=== PATIENT | male | born 1960 | race Caucasian/White ===

== ENCOUNTER 2024-05-11 07:08 | Outpatient (CLI) | payer BC, SELFPAY ==
--- OUTSIDE RECORDS SUMMARY | 2024-05-11 07:11 | XMS_ITS | Clinical Summary ---
Author Organization [place] Address [address] [place] [address] Care Team Providers Care Coin Wrapping Machine Operator Name Role Phone Tere Koenig MD Primary Care Provider [phone] Allergies No known active allergies Medications Medication Sig Dispensed Refills Start Date End Date Status aspirin (ASA) 81 MG chewable tablet Take 81 mg by mouth daily Active atorvastatin (LIPITOR) 40 MG tablet Take 40 mg by mouth At Bedtime Active empagliflozin (JARDIANCE) 10 MG TABS tablet Take 10 mg by mouth daily Active lisinopril (ZESTRIL) 2.5 MG tablet Take 2.5 mg by mouth daily Active metFORMIN (GLUCOPHAGE) 500 MG tablet Take 1,000 mg by mouth 2 times daily (with meals) Active sildenafil (VIAGRA) 100 MG tablet Take 100 mg by mouth daily as needed Active Active Problems Problem Noted Date Diagnosed Date Osteomyelitis of third toe of left foot 01/13/20 Social History Tobacco Use Types Packs/Day Years Used Date Smoking Tobacco: Never Smokeless Tobacco: Never Tobacco Cessation:Counseling Given: Yes Adolescent Education Answer Date Record ed Getting School Help Needed Not on file 04/19 Sex and Gender Information Value Date Recorded Sex Assigned at Not on file Gender Identity Not on file Sexual Orientation Not on file Last Filed Vital Signs Vital Sign Reading Time Taken Comments Blood Pressure 110/72 02/05/2022 1:01 PM CDT Pulse 67 01/15/2022 7:42 AM CDT Temperature 36.9 ??C (98.4 ??F) 01/15/2022 7:42 AM CD T Respiratory Rate 16 01/15/2022 7:42 AM CDT Oxygen Saturation 98% 01/15/2022 7:42 AM CDT Inhaled Oxygen Concentration - - Weight 79.4 kg (175 lb) 01/12/2022 10:13 AM CDT Height 182.9 cm (6') 01/12/2022 10:13 AM CDT Body Mass Index 23.73 01/12/2022 10:13 AM CDT Plan of Treatment Health Maintenance Due Date Last Done Comments ADVANCE CARE PLANNING 1960 ANNUAL REVIEW OF HM ORDERS 1961 CT COLONOGRAPHY 1961 FIT 1960 FLEX SIG 1960 LIPID 1961 sDNA (Cologuard) 1961 COLONOSCOPY 1971 COLORECTAL CANCER SCREENING 1971 HIV SCREENING 1976 HEPATITIS C SCREENING 1979 YEARLY PREVENTIVE VISIT 08/13/2022 08/13/2021 DTAP/TDAP/TD IMMUNIZATION (2 - Td or Tdap) 08/27/2022 08/27/2012 PHQ-2 (once per calendar year) 2023 COVID-19 Vaccine ( season) 2024 08/13/2021, 01/15/2021, 12/23/2020 INFLUENZA VACCINE (#1) 2024 04/11/2021 GLUCOSE 01/15/2025 01/15/2022, 12/26, 01/15/2022, Additional history exists RSV VACCINE (1 - 1-dose 75+ series) 2036 ZOSTER IMMUNIZATION Completed 04/11/2021, HPV IMMUNIZATION Aged Out No longer e ligible based on patient's age to complete this topic MENINGITIS IMMUNIZATION Aged Out No l onger eligible based on patient's age to complete this topic Pneumococcal Vaccine: Pediatrics (0 to 5 Years) and At-Risk Patients (6 to 64 Years) Aged Out No longer eligible based on patient's age to complete this topic RSV MONOCLONAL ANTIBODY Aged Out No l onger eligible based on patient's age to complete this topic Procedures Procedure Name Priority Date/Time Associated Diagnosis Comments GLUCOSE BY METER Routine 01/15/2022 4:12 AM CDT from Last 3 Months or Most Recently Relevant to Health Maintenance Results * (ABNORMAL) Glucose by meter (01/15/2022 4:12 AM CDT) GLUCOSE BY METER POCT 133(H) 70 - 99 mg/dL 01/15/2022 4:20 AM CDT [facility] Blood, Capillary BLOOD SPECIMEN / Unknown 01/15/2022 4:12 AM CDT 01/15/2022 4:20 AM CDT Luis Antonio Art MD LAB - [facility] PO CT [facility] POC [facility] [address] Lab (1st floor, no room number) [place] [address], [facility] [phone] from Last 3 Months or Most Recently Relevant to Health Maintenance Advance Directives For more information, please contact: [phone] * Full Code (Latest Code Status on File) Date Activated Date Inactivated Comments 01/12/2022 2:23 PM 01/15/2022 4:50 PM All basic an d advanced life-sustaining interventions are performed as appropriate Question Answer Comments Code status determined by: Discussion with jermaine nt/ legal decision maker Care Teams Coin Wrapping Machine Operator Relationship Specialty [place] [address] [place] [address] PCP - General Family Medicine 01/12/22
--- OUTSIDE RECORDS SUMMARY | 2024-05-11 07:11 | XMS_ITS | Clinical Summary ---
Author Organization [employer] Address [place], [place] [address] Care Team Providers Care Adjunct Psychology Faculty Member Name Role Phone Tere Koenig MD Primary Care Provider Allergies No known active allergies Medications Medication Sig Dispensed Refills Start Date End Date Status blood-glucose meterIndications:T ype 2 diabetes mellitus without complication, without long-term current use of insulin (HC) Dispense meter, test strips, lancets covered by pt ins. E11.65 NIDDM type II, uncontrolled - Test 2 times/day. Reason: New diabetes 1 Device 10/24/2020 Active Accu-Chek Softclix LancetsIndications :Type 2 diabetes mellitus without complication, without long-term current use of insulin (HC) USE TO TEST TWICE DAILY 200 Each 3 08/11/2022 Active blood sugar diagnostic (Accu-Chek Guide test strips) stripIndications:T ype 2 diabetes mellitus without complication, without long-term current use of insulin (HC) USE TO TEST 1 TIME/DAY 100 Each 3 08/07/2023 Active atorvastatin (Lipitor) 40 mg tabletIndications: Type 2 diabetes mellitus without complication, without long-term current use of insulin (HC),Hypercholeste rolemia Take 1 Tablet (40 mg) by mouth at bedtime. 100 Tablet 3 08/13/2023 Active empagliflozin (Jardiance) 10 mg tabletIndications: Type 2 diabetes mellitus without complication, without long-term current use of insulin (HC) Take 1 Tablet (10 mg) by mouth once daily. 100 Tablet 3 08/13/2023 Active lisinopriL (PRINIVIL; ZESTRIL) 5 mg tabletIndications: Microalbuminuria Take 1 Tablet (5 mg) by mouth once daily. 100 Tablet 3 02/23/2024 Active metFORMIN (GLUCOPHAGE) 1,000 mg tabletIndications: Type 2 diabetes mellitus without complication, without long-term current use of insulin (HC) Take 1 Tablet (1,000 mg) by mouth two times daily with meals. 200 Tablet 3 02/23/2024 Active Active Problems Problem Noted Date Diagnosed Date Microalbuminuria 02/04/2022 Hypercholesterolemia 02/04/2022 Type 2 diabetes mellitus wit hout complication, without long-term current use of insulin 10/24/2020 Resolved Problems Problem Noted Date Diagnosed Date Resolved Date Gangrene of toe of left foot 08/14/2022 08/14/2022 Encounters Date Type Department Care Team Description 02/23/2024 7:40 AM CDT Office Visit [facility] [place] [place] [address] [facility] [place], [place] [id number] Tere Koenig MD Diabetes 02/23/2024 Travel from Last 3 Months Immunizations Name Administration Dates Next Due COVID-19 VACCINE SPIKEVAX (M ODERNA 50MCG/0.5ML) 12YO+ PFS 08/13/2023 COVID-19 vaccine (Moderna 50 mcg/0.5mL) 12YO+ BIVALENT PF, MDV 08/14/2022 COVID-19 vaccine (Moderna Reggie mis 50mcg/0.25mL) PF, MDV 08/13/2021 COVID-19 vaccine (ThoughtLeadr-Bio NTech 30mcg/0.3mL) PF, MDV 01/15/2021,12/23/2020 Hepatitis B (Adult) 02/06/2021 Influenza, IIV4 08/13/2023,08/14/2022,04/11/2021 RSV, Recombinant ADJ Reconst ituted (Arexvy 120MCG/0.5mL) 08/13/2023 Tdap 08/14/2022,08/27/2012 Zoster (Shingrix-RZV, recombinant) 04/11/2021, Family History Medical History Relation Name Comments No Known Problems Daughter Jasmin Heart Disease Father CHF Stroke Maternal Grandmother Heart Disease Mother Unknown Paternal Grandmother No Known Problems Sister 1 Rossy No Known Problems Sister 2 Nazanin No Known Problems Son Keyur Relation Name Status Comments Daughter Jasmin Alive Father Maternal Grandfather Maternal Grandmother Mother Paternal Grandfather Paternal Grandmother Sister 1 Rossy Alive Sister 2 Nazanin Alive Son Keyur Alive Social History Tobacco Use Types Packs/Day Years Used Date Smoking Tobacco: Never Smokeless Tobacco: Never Tobacco Cessation:Counseling Given: Yes Alcohol Use Standard Drinks/Week Comments Yes 0 (1 standard drink = 0.6 oz pure alcohol) 1-2 times a week; 2 drinks at a time PHQ-2 Answer Date Recorded PHQ-2 TOTAL SCORE 0 02/23/2024 Social Connections Answer Date Recorded Frequency of Communication with Friends and Fami ly 0 02/23/2024 Financial Resource Strain Answer Date R ecorded Difficulty of Paying Living Expenses 3 02/23/2024 Difficulty of Paying Living Expenses Not on file 02/23/2024 Food Insecurity Answer Date Recorded Worried About Running Out of Food in the Last Ye ar 1 02/23/2024 Transportation Needs Answer Date Record ed Lack of Transportation (Medical) 1 02/23/2024 Housing Stability Answer Date Recorded Unable to Pay for Housing in the Last Year 1 02/23/2024 Sex and Gender Information Value Date Recorded Sex Assigned at Male 08/12/2021 10:41 AM RESEARCH AND DEVELOPMENT SPECIALIST Gender Identity Male 08/12/2021 10:41 AM RESEARCH AND DEVELOPMENT SPECIALIST Sexual Orientation Straight 08/12/2021 10 :41 AM RESEARCH AND DEVELOPMENT SPECIALIST Obstetrics History Last Filed Vital Signs Vital Sign Reading Time Taken Comments Blood Pressure 122/78 02/23/2024 7:52 AM CDT Pulse 72 02/23/2024 7:52 AM CDT Temperature 36.2 ??C (97.2 ??F) 01/12/2022 9:04 AM CD T Respiratory Rate 16 01/12/2022 9:04 AM CDT Oxygen Saturation 99% 02/23/2024 7:52 AM CDT Inhaled Oxygen Concentration - - Weight 84.9 kg (187 lb 3.2 oz) 02/23/2024 7:52 A M CDT Height 183.5 cm (6' 0.24) 02/23/2024 7:52 AM CD T Body Mass Index 25.22 02/23/2024 7:52 AM CDT Plan of Treatment Upcoming Encounters Date Type Department Care Team (Late st Contact Info) Description 05/16/2024 1:40 PM CDT Office Visit [facility] [address] [place] [address] [place] [address] Susan Chris, DPM [address] [place] [address] [place] [address] 08/25/2024 7:40 AM RESEARCH AND DEVELOPMENT SPECIALIST Office Visit [facility] [place], [place] [address] [address] [place], [place] [phone] [place] [address] [address] [facility] [place] [address] Health Maintenance Due Date Last Done Comments Pneumococcal series for age 6-64 (1 of 2 - PCV) 1967 COVID-19 vaccine series (2023- season) 2024 08/13/2023, 08/14/2022, 08/13/2021, Additional history exists Influenza for age 50-64 03/27/2024 08/13/19 24, 08/14/2022, 04/11/2021 BMI (ht and wt on same day) for age 18+ 02/22/2025 02/23/2024, 08/13/2023, 02/10/2023, Additional history exists Depression screening for age 12+ 02/22/2025 02/23/2024, 02/10/2023, 02/10/2022, Additional history exists Fecal testing sDNA-FIT ([place] guard) for age 45-75 09/14/2026 09/14/2023 Lipids for age 45-75 08/13/2028 08/13/2023, 08/14/2022, 02/06/2021, Additional history exists Tetanus booster 08/14/2032 08/14/2022, 08/27/2012 HIV for age 15-65 Completed 10/22/2020 Hepatitis C screening for ag e 18-79 Completed 02/06/2021 Zoster (shingles) series for age 50+ Completed 04/11/2021, 02/06/2021 Tdap Completed 08/14/2022, 08/27/2012 Procedures Procedure Name Priority Date/Time Associated Diagnosis Comments PSA TOTAL (DIAGNOSTIC) Routine 02/23/2024 8:10 AM CDT Elevated PSA HEMOGLOBIN A1C MONITORING (POCT) Routine 02/23/2024 7:41 AM CDT Type 2 diabetes mellitus without complication, without long-term current use of insulin (HC) SDNA-FIT EXTERNAL (COLOGUARD) Routine 09/14/2023 1:50 PM RESEARCH AND DEVELOPMENT SPECIALIST Screen for colon cancer LIPID PANEL W REFLEX MEASURED LDL Routine 08/13/2023 7:44 AM RESEARCH AND DEVELOPMENT SPECIALIST Type 2 diabetes mellitus without complication, without long-term current use of insulin (HC) Hypercholesterolemi a ANTI HCV Add On 02/06/2021 8:09 AM CDT Need for hepatitis C screening test ANTI HIV 1/2 Routine 10/22/2020 12:32 PM CDT Paresthesia from Last 3 Months or Most Recently Relevant to Health Maintenance Results * (ABNORMAL) PSA TOTAL (DIAGNOSTIC) (02/23/2024 8:10 AM CDT) PSA TOTAL (DIAGNOSTIC) 6.12(H) <4.00 ng/mL 02/23/2024 5:08 PM CDT [facility] Blood BLOOD SPECIMEN / Unknown Capillary / Unknown 02/23/2024 8:10 AM CDT 02/23/2024 8:10 AM CDT Narrative [facility] - 02/23/2024 5:08 PM CDT The test method changed on 01/20/2023. If this test has been used for serial monitoring, rebaselining is recommended. Rebaselining consists of 2 measurements, collected 3-6 weeks apart. The Nora Elecsys total PSA assay is an electrochemiluminescence immunoassay ECLIA performed on the Nora Sterling e immunoassay analyzers. Values obtained with different assay methods may be different and cannot be used interchangeably. Tere Koenig MD CHEMISTRY Performing Organization Address [facility] Co de Phone Number [facility] [address] [place] [address], * (ABNORMAL) HEMOGLOBIN A1C MONITORING (POCT) (02/23/2024 7:41 AM CDT) [facility] HEMOGLOBIN A1C MONITORING (POCT) 6.7(H) <=6.4 % 02/23/2024 7:50 AM CDT [facility] Blood BLOOD SPECIMEN / Unknown Venipuncture / Unknown 02/23/2024 7:41 AM CDT 02/23/2024 7:41 AM CDT Narrative [facility] - 02/23/2024 7:50 AM CDT ? (<=6.9%) ? Indicates good control ? (7.0% to 7.9%) ? Indicates fair control ? (>=8.0%) ? Indicates poor control ?? NOTE: ??These thresholds are guidelines and ?individual targets may vary. Falsely low levels may be seen with: Recent Transfusion, Recent Significant Blood Loss, Hemolytic Diseases, or Falsely elevated levels may be seen with: Untreated Anemias, Splenectomy ? Tere Koenig MD CHEMISTRY Performing Organization Address [facility] Co de Phone Number [facility] [address] [place] [address], * SDNA-FIT EXTERNAL (COLOGUARD) (09/14/2023 1:50 PM RESEARCH AND DEVELOPMENT SPECIALIST) [facility] NONINV COLON CA DNA+OCC BLD SCRN STL-IMP Negative Negative 09/21/2023 4:17 PM RESEARCH AND DEVELOPMENT SPECIALIST [facility] (CLIA #:[id number]) Comment: NEGATIVE TEST RESULT. A negative Cologuard result indicates a low likelihood that a colorectal cancer (CRC) or advanced adenoma (adenomatous polyps with more advanced pre-malignant features) ??is present. The chance that a person with a negative Cologuard test has a colorectal cancer is less than 1 in 1500 (negative predictive value >99.9%) or has an ??advanced adenoma is less than ??5.3% (negative predictive value 94.7%). These data are based on a prospective cross-sectional study of 10,000 individuals at average risk for colorectal cancer who were screened with both Cologuard and colonoscopy. (Amanda Renee al, N Engl J Med 2014;370(14):1286- 1297) The normal value (reference range) for this assay is negative. COLOGUARD RE-SCREENING RECOMMENDATION: Periodic colorectal cancer screening is an important part of preventive healthcare for asymptomatic individuals at average risk for colorectal cancer. ??Following a negative Cologuard result, the [place] Cancer Society and U.S. Multi-Society Task Force screening guidelines recommend a Cologuard re-screening interval of 3 years. References: [place] [employer] Society Guideline for Colorectal Cancer Screening: https://www.cancer.org/cancer/smugt-aprrlt-rrhhoy/dkhkrfvyt-rifaeilqc-gchwbru/ac s-rec ommendations.html.; Jaziel DK, Audrey CR, Kevin OrtaK, Colorectal Cancer Screening: Recommendations for Physicians and Patients from the U.S. Multi-Society Task Force on Colorectal Cancer Screening , Am J Gastroenterology 2017; 112:3911-9855. TEST DESCRIPTION: Composite algorithmic analysis of stool DNA-biomarkers with hemoglobin immunoassay. ?? Quantitative values of individual biomarkers are not reportable and are not associated with individual biomarker result reference ranges. Cologuard is intended for colorectal cancer screening of adults of either sex, 45 years or older, who are at average-risk for colorectal cancer (CRC). Cologuard has been approved for use by the U.S. FDA. The performance of Cologuard was established in a cross sectional study of average-risk adults aged 50-84. Cologuard performance in patients ages 45 to 49 years was estimated by sub-group analysis of near-age groups. Colonoscopies performed for a positive result may find as the most clinically significant lesion: colorectal cancer [4.0%], advanced adenoma (including sessile serrated polyps greater than or equal to 1cm diameter) [20%] or non- advanced adenoma [31%]; or no colorectal neoplasia [45%]. These estimates are derived from a prospective cross-sectional screening study of 10,000 individuals at average risk for colorectal cancer who were screened with both Cologuard and colonoscopy. (Amanda Renee al, N Engl J Med 2014;370(14):0570-5224.) Cologuard may produce a false negative or false positive result (no colorectal cancer or precancerous polyp present at colonoscopy follow up). A negative Cologuard test result does not guarantee the absence of CRC or advanced adenoma (pre-cancer). The current Cologuard screening interval is every 3 years. ([place] Cancer Society and U.S. Multi-Society Task Force). Cologuard performance data in a 10,000 patient pivotal study using colonoscopy as the reference method can be accessed at the following location: www.Tribzi/results. Additional description of the Cologuard test process, warnings and precautions can be found at www.SavingGlobalogLongfan Mediard.com. Stool specimen (specimen) (Rectum) 09/14/2023 1:50 PM RESEARCH AND DEVELOPMENT SPECIALIST 09/15/2023 12:57 PM RESEARCH AND DEVELOPMENT SPECIALIST Tere Koenig MD URINE [facility] (CLIA #:[id number]) [place] [address], * LIPID PANEL W REFLEX MEASURED LDL (08/13/2023 7:44 AM RESEARCH AND DEVELOPMENT SPECIALIST) CHOLESTEROL,TOTAL 136 100 - 199 mg/dL 08/13/2023 5:21 PM RESEARCH AND DEVELOPMENT SPECIALIST [facility] Comment: Cholesterol, Total Reference Ranges Desirable <200 mg/dL Borderline 200-239 mg/dL High >=240 mg/dL TRIGLYCERIDES 56 <150 mg/dL 08/13/2023 5:21 PM RESEARCH AND DEVELOPMENT SPECIALIST [facility] HDL CHOLESTEROL 65 >40 mg/dL 5:21 PM RESEARCH AND DEVELOPMENT SPECIALIST [facility] NON-HDL CHOLESTEROL 71 <145 mg/dl 08/13/2023 5:[address] [facility] CHOL/HDL RATIO 2.09 <4.50 08/13/2023 5:[address] [facility] LDL CHOLESTEROL 60 <=130 mg/dL 08/13/2023 5:[address] [facility] VLDL CHOLESTEROL 11 <=30 mg/dL 08/13/2023 5:[address] [facility] PROVIDER ORDERED STATUS FASTING 08/13/2023 5:21 PM RESEARCH AND DEVELOPMENT SPECIALIST [facility] TR[facility] Blood BLOOD SPECIMEN / Unknown Venipuncture / Unknown 08/13/2023 7:44 AM RESEARCH AND DEVELOPMENT SPECIALIST 08/13/2023 7:44 AM RESEARCH AND DEVELOPMENT SPECIALIST Tere Koenig MD CHEMISTRY [facility] [address] [place] [address], * ANTI HCV (02/06/2021 8:09 AM CDT) HEPATITIS C ANTIBODY Non-React abilio Non-React abilio 02/08/2021 5:32 PM CDT [facility] Comment:Antibodies to HCV no t detected; does not exclude the possibility of exposure to HCV. Blood BLOOD SPECIMEN / Unknown Venipuncture / Unknown 02/06/2021 8:09 AM CDT 02/06/2021 8:10 AM CDT Tere Koenig MD SEND OUTS [facility] [address] [place] [address], * ANTI HIV 1/2 (10/22/2020 12:32 PM CDT) HIV-1/HIV-2 ANTIBODY Non-Reacti ve Non-Reacti ve 10/22/2020 10:35 PM CDT [facility] Comment:HIV-1 p24 and HIV-1/ HIV-2 Ab not detected. Blood BLOOD SPECIMEN / Unknown Venipuncture / Unknown 10/22/2020 12:32 PM CDT 10/22/2020 12:32 PM CDT Tere Koenig MD SEND OUTS [facility] [address] [place] [address], from Last 3 Months or Most Recently Relevant to Health Maintenance Care Teams Adjunct Psychology Faculty Member Relationship Specialty [place] [address] [place] [address] PCP - General Family Practice 10/24/20
--- OUTSIDE RECORDS SUMMARY | 2024-05-11 07:11 | XMS_ITS | Referral Summary ---
Author Organization [facility] Address [address] [place] [address] Care Team Providers Care Grocery Packer Name Role Phone Tere Keonig MD Primary Care Provider Allergies No known [...] 01/12/2022 10:13 AM CDT Plan of Treatment Not on file Procedures Procedure Name Priority Date/Time Associated Diagnosis [...] CDT Luis Antonio Art MD LAB - [facility] [address] RH LABORATORY [facility] Acute [facility] Lab [address] Lab (1st floor, no room number) [place] [address], [facility] [phone] from Last 3 Months or Most Recently Relevant to Health Maintenance Advance Directives For more information, please contact: [phone] * Full Code (Latest Code Status on File) Date Activated Date Inactivated Comments 01/12/2022 2:23 PM 01/15/2022 4:50 PM All basic an d advanced life-sustaining interventions are performed as appropriate Question Answer Comments Code status determined by: Discussion with jermaine nt/ legal decision maker Care Teams Grocery Packer Relationship Specialty [place] [address] [place] [address] PCP - General Family Medicine 01/12/22
--- NOTE | 2024-05-11 07:15 | MR_ITS ---
[facility] [address] [facility] [address] Phone:?[phone] Fax:?[phone] Referring Physician Information: Luisito Hernandez M.D. [address] [facility] [address] Phone:?[phone] Fax:?[phone] Patient:Maxine Veloz D.O.B:?1960 Sex:?Male Phone:?[phone] [facility] MRN:?[id number] Exam Date:?05/11/2024 EXAM: MR PELVIS WITHOUT AND WITH CONTRAST CLINICAL INFORMATION: Elevated PSA. COMPARISON: None. TECHNICAL INFORMATION: Examination was performed on a 1.5T magnet. High- resolution T1 axial, T2 axial, T2 FSE sagittal and T2 FSE coronal images were obtained through the prostate gland and seminal vesicles. Diffusion images were obtained in the axial plane. 20 mL of Dotarem were injected with dynamic enhanced images of the prostate gland in the axial plane. T1 fat saturation sagittal and coronal images were obtained postinjection. Images were analyzed with 3-D postprocessing online under concurrent physician supervision using a separate [employer] workstation. INTERPRETATION: The prostate gland measures 5.8 x 5.0 x 5.8 cm (TV x AP x SI) for an estimated volume of 88 cc. Transitional and central zones: There is marked glandular and stromal hyperplasia with well encapsulated BPH nodules (PI-RADS 2). No focal CZ/TZ lesions concerning for clinically significant adenocarcinoma. Peripheral zones: There is patchy T2-hypointensity with variable hypervascularity, in keeping with prior prostatitis (PI-RADS 2). No focal PZ lesions concerning for clinically significant adenocarcinoma. Pelvis: No bakari transcapsular disease. Neurovascular bundles and seminal vesicles appear intact. No pelvic lymphadenopathy or evident bone marrow disease. CONCLUSION: Marked prostatomegaly with stigmata of BPH and prior prostatitis. No suspicious (PI-RADS 3, 4, or 5) lesions identified. No bakari transcapsular, wes, or skeletal disease in the pelvis. PI-RADS Assessment Categories: Score 1 = very low; clinically significant disease highly unlikely Score 2 = low; clinically significant disease is unlikely Score 3 = intermediate; clinically significant disease is equivocal Score 4 = high; clinically significant disease is likely Score 5 = very high; clinically significant disease is highly likely Electronically signed on 05/14/2024 1:03:00 PM by Jason Esc[place] M.D.
== END 2024-05-11 07:09 | disposition home or self-care (01) ==
LOC: MRI 07:09
PROVIDERS: PCP Family Medicine; Visit Provider Urology
DX: R97.20 Elevated prostate specific antigen [PSA] (principal)
CPT/HCPCS: 72197; A9575

== ENCOUNTER 2024-05-29 16:05 | Inpatient (IN) | payer BC, SELFPAY ==
[2024-05-29 16:10] VITALS: BP 133/83; PULSE 105; RESP 20; TEMP 37.1; O2SAT 98; BMI 25.1
--- OUTSIDE RECORDS SUMMARY | 2024-05-29 16:53 | XMS_ITS | Data Portability ---
Author Organization [facility], [facility] Address [address] [place] [address] Care Team Providers Care Clin Application Specialist Name Role Phone KAUSHIKJOHNY CORTES Primary Care Provider Assessment No assessment recorded. Plan of Treatment Reminders Order Date Submit Date Provider Last Modified By Organization Details Last Modified Time Details Appointments None recorded. Lab None recorded. Referral None recorded. Procedures None recorded. Surgeries None recorded. Imaging MRI, prostate, w/wo contrast - elevated PSA 2023 024 [email or web address] [facility], [address], [place], [address], 16:06:38 Medication Orders None recorded. Patient TargetsNo targets recorded. Patient Instructions Encounter Date Encounter Id Patient Instructions Last Modified By Organization Details Last Modified Time 03/23/2024 [id number] We discussed the significance of an elevated serum prostate specific antigen and its utility in screening for prostate cancer. We discussed that while prostate specific antigen levels may be elevated in some men due to benign causes such as trauma, recent sexual intercourse, urinary tract infections, or recent instrumentation, it may also be indicative of underlying prostate cancer. We discussed that a serum prostate specific antigen test alone is not sufficient to determine if prostate cancer is present and further testing is warranted. We then discussed the available options for further evaluations. One option would be to proceed with transrectal ultrasound with prostate biopsy. This allows for sampling of the prostate in areas where cancer is likely to be found. This will allow for detection of underlying prostate cancer if it is present. We discussed the limitations of this including under sampling which may lead to under diagnosis. We also discussed the risks most notably bleeding to a degree enough to require intervention (1-2.5%) and infection which may result in hospitalization (1-3%). We also discussed expected after effects of biopsy including temporary hematuria, blood per rectum, and hematospermia which are considered normal after this procedure. A second option we discussed would be to proceed first with an MRI of the prostate. This would allow for detection of underlying lesions of the prostate which are suspicious for cancer. This information could then be utilized for ultrasound-MRI fusion biopsies which may result in improved detection of underlying prostate cancer and also facilitate intermediate frame tender surveillance for men in which low risk prostate cancers are identified. We then discussed the role of adjunctive testing in the form (4k score, iso-PSA, or ExoDx) to help better inform risk profile. While this does not tell a man whether he has prostate cancer this may be helpful in making a decision about whether to proceed with a prostate biopsy. [email or web address] Not available 03/23/2024 09:18:58 Reason for Referral None Reported. Results Created Date Observation Date Name Description Value Unit Range Abnormal Flag Note LastModifiedBy Organization Detail LastModifiedTime 02/23/20 24 02/23/2024 PSA, total , serum or plasm a PSA 6.12 abnormal Not Available Not Avail able 03/10/2024 10:02:31 05/18/20 24 05/11/2024 MRI, prost ate, w/wo contr ast No observ ation record ed. [facility] [address] [place], [address], 05/20/2024 18:38:30 Result Notes None recorded. Problems Name Problem SNOMED Code Status Onset Date Resolution Date Notes Provider Name and Address Organization Details Recorded Time Prostate specific antigen above reference range [id number] Active 024 TAYLOR SHINE MD [address] [place] [address],[address] [place] [address], [phone], [facility] 4 09:30:07 Problem Notes None recorded. Procedures Surgical History Date Name Laterality Status Provider Name and Address Organization Details Recorded Time 4 COMPLEX VISIT completed ATYLOR SHINE MD [address] [place] [address],[address] [place] [address], [phone], [facility] 03/23/2024 09:32:09 Past Data Reviewed completed TAYLOR SHINE MD [address], [place], [address], [facility] 03/23/2024 09:21:17 Imaging Results Imaging Date Name Status LastModified by Organiz ation Details LastModified Time 05/11/2024 MRI, prostate, w/wo contrast completed [facility] [address] [place], [address], 05/20/2024 18:38:30 Procedure Notes None recorded. Medical Equipment None Reported. Allergies No known drug allergies Medications Name Sig Start Date Stop Date Status Note LastModified by Organization Details LastModified Time atorvastatin 40 mg tablet 40mg 1/day active Not Available Not Available No t Available Accu-Chek Softclix Lancets USE TO TEST TWICE DAILY* active Not Available Not Available No t Available ketorolac 0.5 % eye drops Instill 1 drop into right eye four times a day Start 3 days before surgery. Continue 6 weeks post-op.* active Not Available Not Available No t Available prednisolone acetate 1 % eye drops,suspensi on Instill 1 drop into right eye four times a day Start 3 days before surgery. Continue 6 weeks post-op.* active Not Available Not Available No t Available metformin 1,000 mg tablet Take 1 Tablet (1,000 mg) by mouth two times daily with meals.* active Not Available Not Available No t Available lisinopril 5 mg tablet TAKE ONE TABLET BY MOUTH ONE TIME DAILY* active Not Available Not Available No t Available lisinopril 10 mg-hydrochloro thiazide 12.5 mg tablet 5mg 1/day active Not Available Not Available Not Available aspirin 81mg 1/day active Not Available Not Available No t Available gatifloxacin 0.5 % eye drops Instill 1 drop into right eye four times a day Start 4 hours after surgery. Use for 4 weeks post-oper atively, then stop* active Not Available Not Available No t Available Jardiance 10 mg tablet 10mg 1/day active Not Available Not Available No t Available Accu-Chek Guide test strips USE TO TEST 1 TIME/DAY* active Not Available Not Available No t Available Vitals Date Recorded Body height Body weight Body mass index (BMI) Provider Name and Address Organization Details Last Updated DateTime 03/23/2024 182.88 cm 32314.80716 21823 g 25.1 kg/m2 Not Available Health Note 03/23/2024 09:07:26 Social History Question Answer Notes LastModified by Organizat ion Details LastModified Time Tobacco Smoking Status Never Smoker Not Available Health Note 03/22/2024 11:27:16 What Is Your Level Of Alcohol Consumption? Occasional [email or web address] Information not available 03/22/2024 What Is Your Level Of Caffeine Consumption? Occasional [email or web address] Information not available 03/22/2024 How Much Tobacco Do You Chew? None [email or web address] Information not available 03/22/2024 Do You Or Have You Ever Used E-cigarettes Or Vape? Never Used Electronic Cigarettes [email or web address] Information not available 03/22/2024 Recreational Drug Use No [email or web address] Information not available 03/23/2024 What Was The Date Of Your Most Recent Tobacco Screening? 03/23/2024 [email or web address] Information not available 03/22/2024 What Is Your Relationship Status? [email or web address] Information not available 03/22/2024 Are You Sexually Active? Yes [email or web address] Information not available 03/22/2024 Do You Or Have You Ever Used Smokeless Tobacco? Never Used Smokeless Tobacco [email or web address] Information not available 03/22/2024 Do You Use Any Illicit Or Recreational Drugs? No [email or web address] Information not available 03/22/2024 Has Tobacco Cessation Counseling Been Provided? Yes Information not available 03/23/2024 On What Date Was Tobacco Cessation Counseling Provided? 03/23/2024 [email or web address] Information not available 03/23/2024 How Many Days In The Past Year Have You Consumed 5 Or More Drinks? 6 [email or web address] Information no t available 03/22/2024 Sex: Male Functional Status None recorded. Mental Status None recorded. Family History Relationship Description Onset Age of this Age Resolved Age Notes LastModified by Organization Details LastModified Time Maternal Grandfather Family history of cardiac disorder [email or web address] Not available 2023 11:27:14 Medical History Condition Response Sexually Transmitted Infection N Diabetes Y Bleeding Disorder N High Blood Pressure Y Kidney Stones N Cancer N Depression N Lung Disease N High Cholesterol N GERD/Acid Reflux N Heart Disease N Immunizations Vaccine Type Date Status Provider Name and Address Organization Details Recorded Time SARS-COV-2 (COVID-19) vaccine, UNSPECIFIED 08/13/2023 completed Love Chamberlain null, [facility] 03/23/2024 09:13:45 zoster recombinant 02/06/2021 completed Love D oyle null, [facility] 03/23/2024 09:13:44 zoster recombinant 04/11/2021 completed Love D oyle null, [facility] 03/23/2024 09:13:44 COVID-19, mRNA, LNP-S, PF, 100 mcg/0.5mL dose or 50 mcg/0.25mL dose 08/13/2021 completed Love Chamberlain null, [facility] 03/23/2024 09:13:45 COVID-19, mRNA, LNP-S, PF, 30 mcg/0.3 mL dose 12/23/2020 [facility] 09:13:45 COVID-19, mRNA, LNP-S, PF, 30 mcg/0.3 mL dose 01/15/2021 completed Love Chamberlain null, [facility] 03/23/2024 09:13:45 COVID-19, mRNA, LNP-S, bivalent, PF, 50 mcg/0.5 mL or 25mcg/0.25 mL dose 08/14/2022 [facility]24 09:13:45 RSV, recombinant, protein subunit RSVpreF, adjuvant reconstituted, 0.5 mL, PF 08/13/2023 completed Love Chamberlain null, [facility] 03/23/2024 09:13:45 COVID-19, mRNA, LNP-S, PF, 50 mcg/0.5 mL 08/13/2023 completed Love Chamberlain null, [facility] 03/23/2024 09:13:45 Tdap 08/14/2022 completed Love Chamberlain null, [facility] 03/23/2024 09:13:45 Tdap 08/27/2012 completed Love Chamberlain null, [facility] 03/23/2024 09:13:45 Hep B, adult 02/06/2021 completed Love Chamberlain null, [facility] 03/23/2024 09:13:45 Influenza, split virus, quadrivalent, PF 08/13/2023 completed Love Chamberlain null, [facility] 03/23/2024 09:13:45 Influenza, split virus, quadrivalent, PF 08/14/2022 completed Love Chamberlain null, [facility] 03/23/2024 09:13:45 Influenza, split virus, quadrivalent, PF 04/11/2021 completed Love Chamberlain null, [facility] 03/23/2024 09:13:45 Past Encounters Encounter ID Performer Location Encounter Start Date Encounter Closed Date Diagnosis/Indication Diagnosis SNOMED-CT Code Diagnosis ICD10 Code [id number] TAYLOR SHINE MD [facility] [address] [place] [address],[address] [place] [phone] 03/23/2024 09:07:00 04/04/2024 13:53:18 Prostate specific antigen above reference range 852586470 R97.20 Health Concerns Section Related Observation LastModified by Organization Detai ls LastModified Time None Recorded Concern Status LastModified by Organization Details LastModified Time None Recorded Advance Directives Directive None Recorded Payers Encounter Date Sequence Insurance Name Policy Number Policy Mendez Covered Member ID Mendez Member ID Guarantor Name 03/23/2024 1 [place] [id number] Teodoro Veloz [id number] Teodoro Veloz Notes Date Note Type Note Provider Name and Address Organization Details Recorded Time 03/23/2024 text/html HPI Notes: This is a 64 year old male who is referred for the evaluation and management of an elevated prostate specific antigen. He was noted to have an elevated prostate specific antigen of 6.12 on 02/23/24. He has prior history of prostate specific antigen elevations - see below. There is no family history of prostate cancer. Denies urinary symptoms. No hematuria. PSA 08/13/21: 6.06 09/26/21: 4.70 08/14/22: 5.4 02/10/23: 4.79 02/23/24: 6.12 TAYLOR SHINE MD [address] [place] [address],[address], [place], [address], [facility] 03/25/2024 00:29:11
--- OUTSIDE RECORDS SUMMARY | 2024-05-29 16:53 | XMS_ITS | Clinical Summary ---
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 Gender Identity Not on file Sexual Orientation [...] Luis Antonio Art MD LAB - BEAKER POCT Final Result [facility] LABORATORY POC [facility] [address] Lab (1st floor, no room number) [place] [address], [facility] [phone] from Last 3 Months or Most Recently Relevant to Health Maintenance Insurance [facility] [employer] Advance Directives For more information, please contact: [phone] * Full Code (Latest Code Status on File) Date Activated Date Inactivated Comments 01/12/2022 2:23 PM 01/15/2022 4:50 PM All basic an d advanced life-sustaining interventions are performed as appropriate Question Answer Comments Code status determined by: Discussion with patidavonte nt/ legal decision maker Care Teams Psychology Instructor Relationship Specialty [place] [address] [place] [address] PCP - General Family Medicine 01/12/22
--- OUTSIDE RECORDS SUMMARY | 2024-05-29 16:53 | XMS_ITS | Referral Summary ---
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 [phone] from Last 3 Months or Most Recently Relevant to Health Maintenance Insurance [facility] [employer] Member Subscriber Plan / Payer (Ef fective 2006-Present) Name:Teodoro Sagastume Relation to Subscriber:Spouse Name:NICOLE SAGASTUME Date of :1967 (Home) Address: [place] [address] Payer ID:[id number] (NAIC) Type:HMO Address: [address] [place] [id number] Advance Directives For more information, please contact: [phone] * Full Code (Latest Code Status on File) Date Activated Date Inactivated Comments 01/12/2022 2:23 PM 01/15/2022 4:50 PM All basic an d advanced life-sustaining interventions are performed as appropriate Question Answer Comments Code status determined by: Discussion with patie nt/ legal decision maker Care Teams Step Finisher Relationship Specialty [place] [address] [place] [address] PCP - General Family Medicine 01/12/22
--- OUTSIDE RECORDS SUMMARY | 2024-05-29 16:53 | XMS_ITS | Clinical Summary ---
Author Organization [facility] Address [place], [place] [address] Care Team Providers Care Security Officers And Guards Name Role Phone Tere Koenig MD Primary [...] with meals. 200 Tablet 3 02/23/2024 Active amoxicillin-clavul anate (Augmentin) 875-125 mg tabletIndications: Cellulitis of great toe of left foot,Type 2 diabetes mellitus with diabetic polyneuropathy, unspecified whether mcfp insulin use (HC),Ulcer of great toe, left, with fat layer exposed (HC) Take 1 Tablet by mouth every 12 hours. 20 Tablet 05/16/2024 Active Active Problems Problem Noted Date Diagnosed Date Microalbuminuria 02/04/2022 Hypercholesterolemia 02/04/2022 Type 2 diabetes mellitus wit hout complication, without long-term current use of insulin 10/24/2020 Resolved Problems Problem Noted Date Diagnosed Date Resolved Date Gangrene of toe of left foot 08/14/2022 08/14/2022 Encounters Date Type Department Care Team Description 05/16/2024 2:20 PM CDT Ancillary Procedure [facility] [address] [place] [address] [place] [address] 05/16/2024 1:40 PM CDT Office Visit [facility] [address] [place] [address] [place] [address] Susan Chris, DPM [place] [place] 05/15/2024 Travel 05/11/2024 Orders Only [facility] Scanner 1 scan: (1-Ord) [facility], PELVIS WWO CONTRAST, 05/11/2024 from Last 3 Months Immunizations Name Administration Dates Next Due COVID-19 VACCINE SPIKEVAX (M ODERNA 50MCG/0.5ML) 12YO+ PFS 08/13/2023 COVID-19 vaccine (Moderna 50 mcg/0.5mL) 12YO+ BIVALENT PF, MDV 08/14/2022 COVID-19 vaccine (Moderna Reggie mis 50mcg/0.25mL) PF, MDV 08/13/2021 COVID-19 vaccine (Pfizer-Bio NTech 30mcg/0.3mL) PF, MDV 01/15/2021,12/23/2020 Hepatitis B [...] 0 02/23/2024 Social Connections Answer Date Recorded Do you often feel lonely or isolated from those around you? 0 02/23/2024 Financial Resource Strain Answer Date R ecorded Difficulty of Paying Living Expenses 3 02/23/2024 Difficulty of Paying Living Expenses Not on file 02/23/2024 Food Insecurity Answer Date Recorded Do you worry your food will run out before you are able to buy more? 1 02/23/2024 Transportation Needs Answer Date Record ed Does lack of transportation keep you from medica l appointments? 1 02/23/2024 Does lack of transportation keep you from work, meetings or getting things that you need? 1 02/23/2024 Housing Stability Answer Date Recorded What is your housing situation today? 1 02/23/2024 Sex and Gender Information Value Date Recorded Sex Assigned at Male 08/12/2021 10:41 AM PUBLIC POLICY MANAGER Gender Identity Male 08/12/2021 10:41 AM PUBLIC POLICY MANAGER Sexual Orientation Straight 08/12/2021 10 :41 AM PUBLIC POLICY MANAGER Obstetrics History Last Filed Vital Signs Vital [...] Care Team (Late st Contact Info) Description 05/31/2024 3:00 PM PUBLIC POLICY MANAGER Office Visit [facility] [address] [address] Susan Chris DPM [address] [address] 08/25/2024 7:40 AM PUBLIC POLICY MANAGER Office [place] [facility] [address] [place] [address] [place] [address] [place] [address] Health Maintenance Due Date Last Done Comments [...] 02/10/2022, Additional history exists Fecal testing sDNA-FIT (Gladys guard) for age 45-75 09/14/2026 09/14/2023 Lipids for age 45-75 08/13/2028 08/13/2023, 08/14/2022, 02/06/2021, Additional history exists Tetanus booster 08/14/2032 08/14/2022, 08/27/2012 HIV for age 15-65 Completed 10/22/2020 Hepatitis C screening for ag e 18-79 Completed 02/06/2021 Zoster (shingles) series for age 50+ Completed 04/11/2021, 02/06/2021 Tdap Completed 08/14/2022, 08/27/2012 Procedures Procedure Name Priority Date/Time Associated Diagnosis Comments XR TOES 3 VIEWS LEFT Routine 05/16/2024 2:33 PM CDT Cellulitis of great toe of left foot Type 2 diabetes mellitus with diabetic polyneuropathy, unspecified whether terminal carman insulin use (HC) Ulcer of great toe, left, with fat layer exposed (HC) SCAN-MRI INTERPRETATION 05/11/2024 12:00 AM CDT SDNA-FIT EXTERNAL (COLOGUARD) Routine 09/14/2023 1:50 PM PUBLIC POLICY MANAGER Screen for colon cancer LIPID PANEL W REFLEX MEASURED LDL Routine 08/13/2023 7:44 AM PUBLIC POLICY MANAGER Type 2 diabetes mellitus without complication, without long-term current use of insulin (HC) Hypercholesterolemi a ANTI HCV Add On 02/06/2021 8:09 AM CDT Need for hepatitis C screening test ANTI HIV 1/2 Routine 10/22/2020 12:32 PM CDT Paresthesia from Last 3 Months or Most Recently Relevant to Health Maintenance Results * XR TOES 3 VIEWS LEFT (05/16/2024 2:33 PM CDT) Anatomical Region Laterality Modality TOES Digital Radiogra phy 05/18/2024 9:03 AM CDT Narrative 05/18/2024 9:03 AM CDT For Patients: ??As a result of the Cures Act, medical imaging exams and procedure reports are released immediately into your electronic medical record. ??You may view this report before your referring provider. ??If you have questions, please contact your health care provider. INDICATION: Cellulitis of great toe. TECHNIQUE: Three views of the left great toe. FINDINGS: Soft tissue defect in the tip of the great toe. No radiopaque foreign body or subcutaneous gas. No specific evidence for osteomyelitis. Dictated by Hernandez Ren MD @ 05/18/2024 9:03:15 AM (Electronically Signed) Procedure Note Hernandez Ren MD - 05/18/2024 For Patients: As a result of the Cures Act, medical imagingexams and procedure reports are released immediately into your electronicmedical record. You may view this report before your referring provider.If you have questions, please contact your health care provider. INDICATION: Cellulitis of great toe. TECHNIQUE: Three views of the left great toe. FINDINGS: Soft tissue defect in the tip of the great toe. No radiopaque foreign bodyor subcutaneous gas. No specific evidence for osteomyelitis. Dictated by Hernandez Ren MD @ 05/18/2024 9:03:15 AM (Electronically Signed) Susan Chris [facility] * SCAN-MRI INTERPRETATION (05/11/2024 12:00 AM CDT) Anatomical Region Laterality Modality Other Scanner OTHER * SDNA-FIT EXTERNAL (COLOGUARD) (09/14/2023 1:50 PM PUBLIC POLICY MANAGER) NONINV COLON CA DNA+OCC BLD SCRN STL-IMP Negative Negative 09/21/2023 4:17 PM PUBLIC POLICY MANAGER codetag (CLIA #:[id number]) Comment: NEGATIVE TEST RESULT. A negative Cologuard [...] screened with both Cologuard and colonoscopy. (Amanda Quiroga. et al, N Engl J Med 2014;370(14):1286- 1297) The normal value (reference range) for this assay is negative. COLOGUARD RE-SCREENING RECOMMENDATION: Periodic colorectal cancer screening is an important part of preventive healthcare for asymptomatic individuals at average risk for colorectal cancer. ??Following a negative Cologuard result, the [place] Cancer Society and U.S. Multi-Society Task Force screening guidelines recommend a Cologuard re-screening interval of 3 years. References: [place] [employer] Society Guideline for Colorectal Cancer Screening: https://www.cancer.org/cancer/ocmja-ytogln-nbyvpc/hrwzmpjau-xwsceyfuk-cqzlktk/ac s-rec ommendations.html.; Jaziel SAMANIEGO, Audrey MEDINA, Kevin CEJA, Colorectal Cancer Screening: Recommendations for Physicians and Patients from the U.S. Multi-Society Task Force on Colorectal Cancer Screening , Am J Gastroenterology 2017; 112:6693-5536. TEST DESCRIPTION: Composite algorithmic analysis of stool [...] screened with both Cologuard and colonoscopy. (Amanda Clancy et al, N Engl J Med 2014;370(14):8624-8308.) Cologuard may produce a false negative or false positive result (no colorectal cancer or precancerous polyp present at colonoscopy follow up). A negative Cologuard test result does not guarantee the absence of CRC or advanced adenoma (pre-cancer). The current Cologuard screening interval is every 3 years. ([place] Cancer Society and U.S. Multi-Society Task Force). Cologuard performance data in a 10,000 patient pivotal study using colonoscopy as the reference method can be accessed at the following location: www.Scancell/results. Additional description of the Cologuard test process, warnings and precautions can be found at www.Hulafrogrd.ZigaVite. Stool specimen (specimen) (Rectum) 09/14/2023 1:50 PM PUBLIC POLICY MANAGER 09/15/2023 12:57 PM PUBLIC POLICY MANAGER Tere Koenig MD URINE codetag (CLIA #:[id number]) [place] [address], * LIPID PANEL W REFLEX MEASURED LDL (08/13/2023 7:44 AM PUBLIC POLICY MANAGER) CHOLESTEROL,TOTAL 136 100 - 199 mg/dL 08/13/2023 5:21 PM PUBLIC POLICY MANAGER [facility] Comment: Cholesterol, Total Reference Ranges Desirable <200 mg/dL Borderline 200-239 mg/dL High >=240 mg/dL TRIGLYCERIDES 56 <150 mg/dL 08/13/2023 5:21 PM PUBLIC POLICY MANAGER [facility] HDL CHOLESTEROL 65 >40 mg/dL 5:21 PM PUBLIC POLICY MANAGER [facility] NON-HDL CHOLESTEROL 71 <145 mg/dl 08/13/2023 5:21 PM [facility] CHOL/HDL RATIO 2.09 <4.50 08/13/2023 5:21 PM PUBLIC POLICY MANAGER [facility] LDL CHOLESTEROL 60 <=130 mg/dL 08/13/2023 5:21 PM PUBLIC POLICY MANAGER [facility] VLDL CHOLESTEROL 11 <=30 mg/dL 08/13/2023 5:21 PM [facility] PROVIDER ORDERED STATUS FASTING 08/13/2023 5:21 PM PUBLIC POLICY MANAGER [facility] Blood BLOOD SPECIMEN / Unknown Venipuncture / Unknown 08/13/2023 7:44 AM PUBLIC POLICY MANAGER 08/13/2023 7:44 AM PUBLIC POLICY MANAGER Tere Koenig MD CHEMISTRY [facility] [address] [place] [address], * ANTI HCV (02/06/2021 8:09 AM CDT) HEPATITIS C ANTIBODY Non-React abilio Non-React abilio 02/08/2021 5:32 PM CDT [facility] Comment:Antibodies to HCV no t detected; does not exclude the possibility of exposure to HCV. Blood BLOOD SPECIMEN / Unknown Venipuncture / Unknown 02/06/2021 8:09 AM CDT 02/06/2021 8:10 AM CDT Tere Koenig MD SEND OUTS [facility] [address] [place] [address], * ANTI HIV 1/2 (10/22/2020 12:32 PM CDT) HIV-1/HIV-2 ANTIBODY Non-Reacti ve Non-Reacti ve 10/22/2020 10:35 PM CDT [facility] Comment:HIV-1 p24 and HIV-1/ HIV-2 Ab not detected. Blood BLOOD SPECIMEN / Unknown Venipuncture / Unknown 10/22/2020 12:32 PM CDT 10/22/2020 12:32 PM CDT Tere Koenig MD SEND OUTS [facility] [address] [place] [address], from Last 3 Months or Most Recently Relevant to Health Maintenance Care Teams Security Officers And Guards Relationship Specialty Start [place] [address] [place], [place] [phone] PCP - General Family Practice 10/24/20
--- OUTSIDE RECORDS SUMMARY | 2024-05-29 16:54 | XMS_ITS | Continuity of Care Document ---
Author Organization [facility], [facility] Address [address] [place] [address] [address] [place] [address] Care Team Providers Care Wax Pot Tender Name Role Phone KAUSHIKJOHNY Quiroga Primary Care Provider [phone] Assessment No assessment recorded. Plan of Treatment Reminders Order Date Submit Date Provider Last Modified By Organization Details Last Modified Time Details Appointments None recorded. Lab None recorded. Referral None recorded. Procedures None recorded. Surgeries None recorded. Imaging MRI, prostate, w/wo contrast - elevated PSA [email or web address] [facility], [address] [place] [address], [address], [place], [address], 16:06:38 Medication Orders None recorded. Patient TargetsNo targets recorded. Patient Instructions Encounter Date Encounter Id Patient Instructions Last Modified By Organization Details Last Modified Time 03/23/2024 [id number] We discussed the significance of an elevated [...] of underlying prostate cancer and also facilitate emt intermediate surveillance for men in which low risk prostate cancers are identified. We then discussed the role of adjunctive testing in the form (4k score, iso-PSA, or ExoDx) to help better inform risk profile. While this does not tell a man whether he has prostate cancer this may be helpful in making a decision about whether to proceed with a prostate biopsy. [email or web address] Not available 03/23/2024 09:18:58 Reason for Referral None Reported. Results Created Date Observation Date Name Description Value Unit Range Abnormal Flag Note LastModifiedBy Organization Detail LastModifiedTime 05/18/20 24 05/11/2024 MRI, prost ate, w/wo contr ast No observ ation record ed. [facility] [address] [place], [address], 05/20/2024 18:38:30 Result Notes None recorded. Problems Name Problem SNOMED Code Status Onset Date Resolution Date Notes Provider Name and Address Organization Details Recorded Time Prostate specific antigen above reference range [id number] Active 024 TAYLOR SHINE MD [address] [place] [address],[address] [place] [address], [phone], [facility] 4 09:30:07 Problem Notes None recorded. Procedures Surgical History Date Name Laterality Status Provider Name and Address Organization Details Recorded Time 4 COMPLEX VISIT completed TAYLOR SHINE MD [address] [place] [address],[address] [place] [address], [phone], [facility] 03/23/2024 09:32:09 4 Past Data Reviewed completed TAYLOR SHINE MD [address] [place] [address],[address], [place], [address], [facility] 03/23/2024 09:21:17 Imaging Results None recorded. Procedure Notes None recorded. Medical Equipment None [...] Details Last Updated DateTime 03/23/2024 182.88 cm 24085.60779 89560 g 25.1 kg/m2 Not Available Health Note [...] not available 03/22/2024 Recreational Drug Use No [email or web address] Information not available 03/23/2024 What Was The [...] Has Tobacco Cessation Counseling Been Provided? Yes [email or web address] Information not available 03/23/2024 On What Date Was Tobacco Cessation Counseling Provided? 03/23/2024 [email or web address] Information not available 03/23/2024 How Many Days [...] available 2023 11:27:14 Medical History Condition Response High Blood Pressure Y Kidney Stones N Depression N Lung Disease N GERD/Acid Reflux N Sexually Transmitted Infection N Diabetes Y Bleeding Disorder N Cancer N High Cholesterol N Heart Disease N Immunizations Vaccine Type Date Status Provider Name and Address Organization Details Recorded Time SARS-COV-2 (COVID-19) vaccine, UNSPECIFIED 08/13/2023 pro farfan [facility] 03/23/2024 09:13:45 zoster recombinant 02/06/2021 pro farfan [facility] 03/23/2024 09:13:44 zoster recombinant 04/11/2021 pro farfan [facility] 03/23/2024 09:13:44 COVID-19, mRNA, LNP-S, PF, 100 mcg/0.5mL dose or 50 mcg/0.25mL dose 08/13/2021 completed Love Chamberlain null, [facility] 03/23/2024 09:13:45 COVID-19, mRNA, LNP-S, PF, 30 mcg/0.3 mL dose 12/23/2020 completed Love Chamberlain null, [facility] 03/23/2024 09:13:45 COVID-19, mRNA, LNP-S, PF, 30 mcg/0.3 mL dose 01/15/2021 completed Love Chamberlain null, [facility] 03/23/2024 09:13:45 COVID-19, mRNA, LNP-S, bivalent, PF, 50 mcg/0.5 mL or 25mcg/0.25 mL dose 08/14/2022 completed Love Chamberlain null, [facility] 03/23/2024 09:13:45 RSV, recombinant, protein subunit RSVpreF, adjuvant reconstituted, 0.5 mL, PF 08/13/2023 completed Love Chamberlain null, [facility] 03/23/2024 09:13:45 COVID-19, mRNA, LNP-S, PF, 50 mcg/0.5 mL 08/13/2023 completed Love Chamberlain null, [facility] 03/23/2024 09:13:45 Tdap 08/14/2022 completed Love Chamberlain null, [facility] 03/23/2024 09:13:45 Tdap 08/27/2012 completed Love Chamberlain null, [facility] 03/23/2024 09:13:45 Hep B, adult 02/06/2021 completed Love Chamberlain null, [facility] 03/23/2024 09:13:45 Influenza, split virus, quadrivalent, PF 08/13/2023 completed Love Chamberlain null, [facility] 03/23/2024 09:13:45 Influenza, split virus, quadrivalent, PF 08/14/2022 completed Love Chamberlain null, [facility] 03/23/2024 09:13:45 Influenza, split virus, quadrivalent, PF 04/11/2021 completed Love farfan [facility] 03/23/2024 09:13:45 Past Encounters Encounter ID Performer Location Encounter Start Date Encounter Closed Date Diagnosis/Indication Diagnosis SNOMED-CT Code Diagnosis ICD10 Code [id number] TAYLOR SHINE MD [facility] [address] [facility],[address] [place] [address] 03/23/2024 09:07:00 04/04/2024 13:53:18 Prostate specific antigen above reference range [id number] R97.20 Health Concerns Section Related Observation LastModified by Organization Detai ls LastModified Time None Recorded Concern Status LastModified by Organization Details LastModified Time None Recorded Payers Encounter Date Sequence Insurance Name Policy Number Policy Mendez Covered Member ID Mendez Member ID Guarantor Name 03/23/2024 1 [place] [id number] Teodoro Veloz [id number] Teodoro Veloz Notes Date Note Type Note [...] 02/10/23: 4.79 02/23/24: 6.12 TAYLOR SHINE MD [address] [place] [address],[address], [place], [address], [facility] 03/25/2024 00:29:11
--- NOTE | 2024-05-29 17:21 | ED_ITS ---
HPI - Extremity Injury (Lower) General Date Seen: 05/29/24 Chief Complaint: Extremity Pain/Injury, Lower Stated Complaint: L foot toe infection Time Seen by Provider: 05/29/24 16:23 Source: patient and family Mode of arrival: ambulatory Limitations: no limitations History of Present Illness HPI Narrative: Patient is a 64-year-old gentleman who presents here for evaluation of left great toe infection, he has had this now for the past 10 days or so. Occurred initially when he was wearing weight years well he is pulling a dock out of the water. He noted a blister on the tip of his left great toe, this is gone on to become red and swollen. He does not have any pain with this but has neuropathy of both of his feet bilaterally can not feel pain. 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 He was seen in urgent care initially placed on Keflex, he was seen by Podiatry 7 days ago and placed on what sounds like Cipro, but I cannot confirm this. He is now off medications, just using wipes, they were worried as he is more fatigued, he has not had a fever chills, but the toe if anything looks a little worse than it did before. Related Data Home Medications ?Medication ?Instructions ?Recorded ?Confirmed aspirin 81 mg tablet,delayed 81 mg PO QDAY 05/08/24 05/08/24 release (Adult Aspirin Regimen) atorvastatin 40 mg tablet 40 mg PO DAILY 05/08/24 05/08/24 empagliflozin 10 mg tablet 10 mg PO QDAY 05/08/24 05/08/24 (Jardiance) lisinopril 5 mg tablet 5 mg PO DAILY 05/08/24 05/08/24 metformin 1,000 mg tablet 1,000 mg PO BID 05/08/24 05/08/24 Allergies Allergy/AdvReac Type Severity Reaction Status Date / Time No Known Drug Allergies Allergy Verified 05/29/24 19:58 Review of Systems Status of ROS: Reports: 10 or more systems reviewed and unremarkable except as noted in History and below Exam Narrative: Exam Narrative: On examination he is in no apparent distress he is seen in room 4. Examination of the left great toe shows there is a area of discharge right at the had surface distally. It is approximately 6 dollar size, there was initial area with some skin on it, and then outer redness, the toe itself is swollen and red. He is able to move it however. The redness does extend up into next toe. It least at the base. DP and posterior tibial pulses are normal. He is able to move the foot otherwise. Const: Vital Signs, click to edit/add: Vital Signs - 24 hr 05/29/24 16:10 05/29/24 20:00 05/29/24 21:08 Temperature 98.7 F 98.7 F Pulse Rate [Left P ulse Oximeter] 105 H 89 Respiratory Rate 20 20 Blood Pressure [Ri ght Upper Arm] 133/83 125/78 Pulse Oximetry 98 98 98 Oxygen Delivery Me thod Room Air Room Air Documenting provider has reviewed patient's vital signs: yes Course Course ED Course: I spoke to Dr. Derrick bautista from Podiatry, he will see the patient in the morning, I also spoke to the hospitalist, we will start him on vancomycin and Zosyn, which will cover very well for this diabetic toe infection Vital Signs Vital signs: Initial Vital Signs Temperature 98.7 F 05/29/24 16:10 Temperature Source Oral 05/29/24 16:10 Pulse Rate 105 H 05/29/24 16:10 Pulse Rhythm Regular 05/29/24 16:10 Respiratory Rate 20 05/29/24 16:10 Blood Pressure 133/83 05/29/24 16:10 Blood Pressure Mean 99 05/29/24 16:10 Blood Pressure Position Sitting 05/29/24 16:10 Pulse Oximetry 98 05/29/24 16:10 Oxygen Delivery Method Room Air 05/29/24 16:10 Vital Signs Temperature 98.7 F 05/29/24 16:10 Pulse Rate 105 H 05/29/24 16:10 Respiratory Rate 20 05/29/24 16:10 Blood Pressure 133/83 05/29/24 16:10 Pulse Oximetry 98 05/29/24 16:10 Oxygen Delivery Method Room Air 05/29/24 16:10 Temperature 98.7 F 05/29/24 21:08 Pulse Rate 89 05/29/24 21:08 Respiratory Rate 20 05/29/24 21:08 Blood Pressure 125/78 05/29/24 21:08 Pulse Oximetry 98 05/29/24 21:08 Oxygen Delivery Method Room Air 05/29/24 21:08 Medications Administered Medications: Discontinued Medications Generic Name Dose Route Start Last Admin Trade Name Freq PRN Reason Stop Dose Admin Piperacillin Sod/Tazobactam 100 mls @ 200 mls/hr 05/29/24 20:34 05/29/24 20:47 Sod 3.375 gm/ Sodium Chloride IVPB 05/29/24 20:35 200 mls/hr ONCE ONE Administration MDM - Extremity Injury (Lower) MDM Narrative Medical decision making narrative: I am worried about a worsening infection or osteomyelitis here. I did do a culture of the tip. We will send this to lab I will get blood tests, and then a CT scan to further delineate this. Medical Records Attestation: I reviewed the patient's medical records. Lab Data Attestation: I reviewed the patient's lab results. Labs: Lab Results 05/29/24 05/29/24 Range/Units 16:53 17:30 WBC 6.39 (4.50-11.00) K/uL RBC 4.94 (4.30-5.90) m/uL Hgb 13.7 (13.5-17.5) gm/dL Hct 41.5 (37.0-53.0) % MCV 84 (80-100) fL MCH 28 (26-34) pg MCHC 33 (32-36) gm/dL RDW Coeff of Arsen 12.3 (11.5-15.5) % Plt Count 268 (140-440) K/uL Neut % (Auto) 66.1 (42.0-72.0) % Lymph % (Auto) 23.5 (20-44) % [place] % (Auto) 8.8 (0.0-11.0) % Eos % (Auto) 1.4 (0.0-7.0) % Baso % (Auto) 0.2 (0.0-3.0) % Neut # (Auto) 4.23 (1.7-7.0) K/uL Lymph # (Auto) 1.50 (0.90-2.90) K/uL [place] # (Auto) 0.60 (0.00-0.90) K/UL Eos # (Auto) 0.09 (0.00-0.50) K/uL Baso # (Auto) 0.01 (0.00-0.30) K/uL Abs Immat Gran (auto) 0.00 (0.00-0.30) K/uL Imm/Tot Granulo (auto) 0.0 % Sodium 136 (135-149) mmol/L Potassium 4.2 (3.6-5.1) mmol/L Chloride 100 (96-114) mmol/L Carbon Dioxide 26 (20-32) mmol/L Anion Gap 10 (7-15) mEq/L BUN 27 (7-30) mg/dL Creatinine 0.9 (0.5-1.5) mg/dL Estimated Creat Clear 82.99 Estimated GFR 96 ml/min Glucose 160 H (60-115) mg/dL Calcium 9.1 (8.4-10.6) mg/dL C-Reactive Protein 4.3 H (0.5-1.0) mg/dL Procalcitonin 0.11 (<0.50) ng/mL Imaging Data ext ct: Attestation: I have reviewed the pertinent imaging results. My impression: osteoMyelitis of the toe Radiologist's impression: atient: PAULA SAGASTUME Facility:?[facility] Patient ID:?[id number] Site Patient ID:?[id number]. Site :?[id number] Study:?CT-Extremity Left FOOT W/91CC [id number]/3/2024 7:58:06 PM Ordering Physician:Katharine Antonio Preliminary Report: INDICATION: Left great toe infection not otherwise specified. COMPARISON: None available. PRELIMINARY FINDINGS: 1. Osteolytic destruction of the distal phalanx of the great toe is consistent with osteomyelitis. 2. On the coronal soft tissue windows there is a rim enhancing low-attenuation collection along the dorsal aspect of the distal phalanx of the left great toe consistent with a subperiosteal abscess (series 5; image 11). 3. Diffuse skin thickening and subcutaneous edema of the left great toe is consistent with cellulitis. THIS IS A PRELIMINARY REPORT. FINAL REPORT TO BE ISSUED BY THE [facility] SUBSPECIALITY SECTION OF THE DEPARTMENT. Dictated by Bentley Stubbs MD @ 05/29/2024 8:24:10 PM Read by:?Bentley Stubbs MD @05/29/2024 8:24:16 PM Discharge Plan Discharge Clinical Impression: Cellulitis, Osteomyelitis, Diabetes Patient Disposition: Admitted As Observation
[2024-05-29 17:40] LABS: Basophils Absolute Auto 0.01 K/uL (0.00-0.30); Basophils Percent Auto 0.2 % (0.0-3.0); Eosinophils Absolute Auto 0.09 K/uL (0.00-0.50); Eosinophils Percent Auto 1.4 % (0.0-7.0); Hematocrit 41.5 % (37.0-53.0); Hemoglobin* 13.7 gm/dL (13.5-17.5); Lymphocytes Percent Auto 23.5 % (20-44); Mean Corpuscular HGB Conc 33 gm/dL (32-36); Mean Corpuscular Hemoglobin 28 pg (26-34); Mean Corpuscular Volume 84 fL (80-100); Monocytes Percent Auto 8.8 % (0.0-11.0); Neutrophils Absolute Auto 4.23 K/uL (1.7-7.0); Neutrophils Percent Auto 66.1 % (42.0-72.0); Platelet Count* 268 K/uL (140-440); RDW Coefficient of Variation % 12.3 % (11.5-15.5); Red Blood Count 4.94 m/uL (4.30-5.90); White Blood Count* 6.39 K/uL (4.50-11.00)
[2024-05-29 17:41] LABS: Slide Review Reflex No
[2024-05-29 17:59] LABS: C Reactive Protein* 4.3 mg/dL (0.5-1.0)
[2024-05-29 18:13] LABS: Procalcitonin* 0.11 ng/mL (<0.50)
[2024-05-29 18:38] LABS: Chloride* 100 mmol/L (96-114); Potassium* 4.2 mmol/L (3.6-5.1); Sodium* 136 mmol/L (135-149)
[2024-05-29 18:41] LABS: Anion Gap 10 mEq/L (7-15); Blood Urea Nitrogen* 27 mg/dL (7-30); Carbon Dioxide* 26 mmol/L (20-32); Creatinine* 0.9 mg/dL (0.5-1.5); Est. Creatinine Clearance* 82.99; Estimated Glomerular Filt Rate 96 ml/min; Glucose* 160 mg/dL (60-115)
[2024-05-29 18:42] LABS: Calcium* 9.1 mg/dL (8.4-10.6)
--- NOTE | 2024-05-29 19:12 | CRLHL7_ITS ---
For Patients: As a result of the Century Cures Act, medical imaging exams and procedure reports are released immediately into your electronic medical record. You may view this report before your referring provider. If you have questions, please contact your health care provider. Indication: Great toe infection. Technique: CT of the left foot was performed following the administration of 91 mL Isovue 370 intravenous contrast. Comparison: None available. Findings: Bones: There is osseous destruction and fragmentation involving the tuft of the great toe distal phalanx. Fragmentation also extends more proximally into the base of the distal phalanx without definite intra-articular extension. There is a thin rim enhancing collection along the dorsal margin of the distal phalanx (series 8, image 19 and series 5, image 11) compatible with a subperiosteal abscess. This collection measures approximately 4 mm in thickness. Postoperative changes following 3rd toe amputation at the level of the metatarsophalangeal joint. Healed fracture deformity of the 2nd metatarsal diaphysis. Bipartite hallux tibial sesamoid. Soft tissues: Circumferential soft tissue swelling and enhancement of the great toe with plantar ulcer. Muscles: Mild fatty replaced in the intrinsic foot musculature. No intramuscular fluid collection. Tendons: Os peroneum. Tendons are normal in caliber and attenuation. Impression: 1. Cellulitis of the great toe with plantar ulcer and underlying osteomyelitis of the distal phalanx. 2. Thin subperiosteal abscess along the dorsal margin of the distal phalanx. Please note that all CT scans at this facility use dose modulation, iterative reconstruction, and/or weight-based dosing when appropriate to reduce radiation dose to as low as reasonably achievable. Dictated by Zeenat Danielle MD @ 05/30/2024 7:26:09 AM (Electronically Signed)
[2024-05-29 20:00] VITALS: O2SAT 98
[2024-05-29] MEDS: PIPERACILLIN/TAZOBACTAM 3.375 GM in 0.9 % SODIUM CHLORIDE Mini-bag 100 ML IVPB (20:47)
[2024-05-29 21:08] VITALS: BP 125/78; PULSE 89; RESP 20; TEMP 37.1; O2SAT 98
[2024-05-29 21:17] VITALS: BP 125/78; PULSE 89; RESP 20; TEMP 37.1
[2024-05-29] MEDS: VANCOMYCIN 1.5 GM/300 ML 1.5 GM/300 ML PIGGYBACK IVPB (21:23)
--- NOTE | 2024-05-29 21:33 | PM.IMHP1 ---
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 Patient was seen in the ED tonight for concern of worsening infection of the left 1st toe. Initially started approximately 3 weeks ago when he was wearing rubber boots on a hot day in the water while taking care of his dock. He developed a blister on the toe. He tells me prior to that incident the toe was only callused without any evidence of other wound. Since that time he has been on a course of two oral antibiotics as well as underwent a debridement with an [facility] pharmacy innovation assistant on 05/16/2024. Over the past several days, he reports feeling more tired than usual. Denies recent fevers or chills. Denies headache or dizziness. Denies chest pain or shortness of breath. Denies abdominal pain, nausea, vomiting, diarrhea. No change in urination. In the ED, CT shows evidence of osteomyelitis, cellulitis, abscess of the left toe. He was started on IV vancomycin and Zosyn. Wound culture is pending. ED provider discussed with Podiatry, Dr. Mondragon, who will see him in the morning. Review of Systems Narrative: REVIEW OF SYSTEMS: Complete review of systems performed and negative unless otherwise stated in HPI or below. [facility] Medical History Hypercholesterolemia ?E78.00 - Pure hypercholesterolemia, unspecified (ICD-10) Type 2 diabetes mellitus ?E11.9 - Type 2 diabetes mellitus without complications (ICD-10) Meds Home Medications and Allergies Home Medications ?Medication ?Instructions ?Recorded ?Confirmed ?Type aspirin 81 mg tablet,delayed 81 mg PO QDAY 05/08/24 05/08/24 History release (Adult Aspirin Regimen) atorvastatin 40 mg tablet 40 mg PO DAILY 05/08/24 05/08/24 History empagliflozin 10 mg tablet 10 mg PO QDAY 05/08/24 05/08/24 History (Jardiance) lisinopril 5 mg tablet 5 mg PO DAILY 05/08/24 05/08/24 History metformin 1,000 mg tablet 1,000 mg PO BID 05/08/24 05/08/24 History Allergies Allergy/AdvReac Type Severity Reaction Status Date / Time No Known Drug Allergies Allergy Verified 05/29/24 19:58 Exam Narrative: Exam Narrative: PHYSICAL EXAM General: Pleasant, conversant, NAD HEENT: Normocephalic, atraumatic, sclera white, EOMI, oral mucosa moist Cardiovascular: RRR, S1S2. No pitting edema Pulmonary: CTA bilaterally without rhonchi, rales, expiratory wheezes. No dyspnea Abdominal: Soft, nondistended, NTTP Neurological: Alert, answering questions appropriately, cranial nerves intact, no focal findings Extremities: Left 1st toe with large ulceration, blackened, bloody drainage, trace edema Skin: Warm, dry. Const: Vital Signs, click to edit/add: Vital Signs - 24 hr 05/29/24 16:10 05/29/24 20:00 05/29/24 21:08 Temperature 98.7 F 98.7 F Pulse Rate [Left P ulse Oximeter] 105 H 89 Respiratory Rate 20 20 Blood Pressure [Ri ght Upper Arm] 133/83 125/78 Pulse Oximetry 98 98 98 Oxygen Delivery Me thod Room Air Room Air 05/29/24 21:17 Temperature 98.7 F Pulse Rate [Left P ulse Oximeter] 89 Respiratory Rate 20 Blood Pressure [Ri ght Upper Arm] 125/78 Pulse Oximetry [facility] - [facility]: Result Labs Labs: Short CBC 05/29/24 Range/Units 17:30 WBC 6.39 (4.50-11.00) K/uL Hgb 13.7 (13.5-17.5) gm/dL Hct 41.5 (37.0-53.0) % Plt Count 268 (140-440) K/uL BMP 05/29/24 16:53 Sodium 136 Potassium 4.2 Chloride 100 Carbon Dioxide 26 BUN 27 Creatinine 0.9 Glucose 160 H Calcium 9.[address] left foot: Attestation: I have reviewed the pertinent imaging results. Radiologist's impression: PRELIMINARY FINDINGS: 1. Osteolytic destruction of the distal phalanx of the great toe is consistent with osteomyelitis. 2. On the coronal soft tissue windows there is a rim enhancing low-attenuation collection along the dorsal aspect of the distal phalanx of the left great toe consistent with a subperiosteal abscess (series 5; image 11). 3. Diffuse skin thickening and subcutaneous edema of the left great toe is consistent with cellulitis. THIS IS A PRELIMINARY REPORT. FINAL REPORT TO BE ISSUED BY THE [facility] SUBSPECIALITY SECTION OF THE DEPARTMENT. Assessment and Plan Assessment and plan (1) Osteomyelitis: Problem comment: -CT shows osteolytic destruction of the distal phalanx of the great toe consistent with osteomyelitis. On the coronal soft tissue windows there is a rim enhancing low-attenuation collection along the dorsal aspect of the distal phalanx of the left great toe consistent with a subperiosteal abscess. Diffuse skin thickening and subcutaneous edema of the left great toes consistent with cellulitis -afebrile, no leukocytosis, procalcitonin 0.11, CRP 4.3, wound culture pending -continue IV vanco and zosyn -wound cares -ED provider discussed with Dr. Mondragon, consult Thursday morning. NPO after midnight in case. Hold ASA -seen by [facility], Dr. Chris, 05/16/24 for wound debridement (picture available) and course of oral augmentin -h/o left 3rd toe amputation (2021) Status: Acute (2) Cellulitis: Problem comment: -findings and management as above Status: Acute (3) Abscess of toe of left foot: Problem comment: -findings and management as above Status: Acute (4) Type 2 diabetes mellitus: Problem comment: -with peripheral neuropathy -most recent A1c 6.7 -hold metformin, continue Jardiance. Continue statin, ACEI/ARB -glucose checks ACHS, will hold off on insulin sliding scale at this time Status: Acute (5) Hypercholesterolemia: Problem comment: -continue statin Status: Acute Total Time Spent Total Time Spent: Total time spent caring for the patient today was 75 minutes. This includes time spent for the visit reviewing the chart, time spent during the visit, time spent after the visit and documentation and planning in coordination of care.
[2024-05-29 22:11] VITALS: BP 120/70; PULSE 95; RESP 16; TEMP 36.7; O2SAT 100; BMI 25.1
[2024-05-30] VITALS (8 sets, daily range): BP systolic 119–150; BP diastolic 78–95; PULSE 68–83; RESP 16–18; TEMP 36.1–37; O2SAT 97–100
[2024-05-30] MEDS: PIPERACILLIN/TAZOBACTAM 3.375 GM in 0.9 % SODIUM CHLORIDE Mini-bag 100 ML IVPB ×4 (03:00→20:30)
--- NOTE | 2024-05-30 05:55 | PC.NURSE ---
Arrived to the floor at 2109 via wheelchair accompanied by his . A&O pleasant and cooperative. VSS, afebrile. Denies pain. Left great toe reddened, inflamed and oozing. Toe is open to air. Up w/ SBA. Tolerates well. Using call light appropriately. NPO since 0000 ?
[2024-05-30 06:35] LABS: Hematocrit 41.2 % (37.0-53.0); Hemoglobin* 13.7 gm/dL (13.5-17.5); Mean Corpuscular HGB Conc 33 gm/dL (32-36); Mean Corpuscular Hemoglobin 28 pg (26-34); Mean Corpuscular Volume 84 fL (80-100); Platelet Count* 249 K/uL (140-440); White Blood Count* 4.88 K/uL (4.50-11.00)
[2024-05-30 06:36] LABS: Slide Review Reflex No
[2024-05-30 06:41] LABS: Chloride* 103 mmol/L (96-114)
[2024-05-30 06:42] LABS: Potassium* 4.1 mmol/L (3.6-5.1); Sodium* 138 mmol/L (135-149)
[2024-05-30 06:44] LABS: Est. Creatinine Clearance* 82.99; Estimated Glomerular Filt Rate 85 ml/min
[2024-05-30 06:45] LABS: Anion Gap 9 mEq/L (7-15); Blood Urea Nitrogen* 24 mg/dL (7-30); Carbon Dioxide* 26 mmol/L (20-32)
[2024-05-30 06:46] LABS: Calcium* 9.1 mg/dL (8.4-10.6); Glucose* 127 mg/dL (60-115)
[2024-05-30 06:48] LABS: C Reactive Protein* 3.7 mg/dL (0.5-1.0)
[2024-05-30 08:39] LABS: Erythrocyte SedimentationRate* 33 mm/hr (2-15)
[2024-05-30] MEDS: SODIUM CHLORIDE 0.9 % (FLUSH) 10 ML SYRINGE 5 ML IVF ×2 (09:13→21:33)
[2024-05-30] MEDS: VANCOMYCIN 1.25 GM/250 ML 1.25 GM/250 ML PIGGYBACK IVPB ×2 (09:56→21:32)
--- NOTE | 2024-05-30 10:13 | P.IMPN_ITS ---
Progress Note: A&P Assessment and plan (1) Osteomyelitis: Problem details: -CT shows osteolytic destruction of the distal phalanx of the great toe consistent with osteomyelitis. On the coronal soft tissue windows there is a rim enhancing low-attenuation collection along the dorsal aspect of the distal phalanx of the left great toe consistent with a subperiosteal abscess. Diffuse skin thickening and subcutaneous edema of the left great toes consistent with cellulitis -afebrile, no leukocytosis, procalcitonin 0.11, CRP 4.3, wound culture pending -continue IV vanco and zosyn -wound cares -ED provider discussed with our radio officer, Dr. Mondragon, who saw the patient the morning of 05/30/2024 and they decided to go to the OR for definitive surgical management of the abscess and osteomyelitis. I also discussed with our radio officer and agree with the plan. No medical contraindication to proceed with surgery or anesthesia. -NPO. IV fluids. Hold ASA. -seen by [facility], Dr. Chris, 05/16/24 for wound debridement (picture available) and course of oral augmentin -h/o left 3rd toe amputation (2021) -PT and OT consultation -he will need to work closely with his radio officer regarding orthotics and foot care hereafter Status: Acute (2) Cellulitis: Problem details: -findings and management as above Status: Acute (3) Abscess of toe of left foot: Problem details: -findings and management as above Status: Acute (4) Type 2 diabetes mellitus: Problem details: -with peripheral neuropathy -most recent A1c 6.7 -hold metformin, continue Jardiance. Continue ACEI/ARB -glucose checks ACHS -sliding scale insulin, low dose Status: Acute (5) Hypercholesterolemia: Problem details: -continue statin Status: Acute Plan 1. Reviewed impression with patient and 2. Discussed plan recommendations with patient and 3. Answered their questions to their satisfaction 4. 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 ?Patient was seen in the ED tonight for concern of worsening infection of the left 1st toe. Initially started approximately 3 weeks ago when he was wearing rubber boots on a hot day in the water while taking care of his dock. He developed a blister on the toe. He tells me prior to that incident the toe was only callused without any evidence of other wound. Since that time he has been on a course of two oral antibiotics as well as underwent a debridement with an [facility] radio officer on 05/16/2024. Over the past several days, he reports feeling more tired than usual. Denies recent fevers or chills. Denies headache or dizziness. Denies chest pain or shortness of breath. Denies abdominal pain, nausea, vomiting, diarrhea. No change in urination. ?In the ED, CT shows evidence of osteomyelitis, cellulitis, abscess of the left toe. He was started on IV vancomycin and Zosyn. Wound culture is pending. ED provider discussed with Podiatry, Dr. Mondragon, who will see him in the morning.? Hospital day 2. Osteomyelitis left distal phalanx and cellulitis of left hallux. Receiving IV vancomycin and IV piperacillin with tazobactam. Denies pain per se. Acknowledges underlying peripheral neuropathy. Tolerating IV antibiotics. Was evaluated by our radio officer, Dr. Mondragon, who will be taking the patient to the operating room later this morning for definitive management. Blood sugars usually well controlled on his current regimen and efforts. Most recent hemoglobin A1c was 6.7. Denies hypoglycemic episodes. Mindful of his diet. Trying to increase his physical activities safely. 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 Weight has been stable around 185 lb for the last 2-3 years. Prior to that his weight had been around 205-210 lb. He is retired. He and his are on the verge of making decisions about the next phase of their life as their last child in college will be graduating at the end of this academic calendar year from [employer] in [place], [place]. Exam Narrative: Exam Narrative: I examine him in his hospital room. Appears comfortable and in no acute distress. Vision and hearing are adequate. Alert and oriented x4. Friendly, articulate, cooperative. Neck is supple. Moves all 4 extremities. Cranial nerves 3-12 grossly normal. Lungs are clear to auscultation without wheezing, rhonchi, or rales. Chest wall excursions are full. No CVA tenderness. Heart tones with regular rhythm, normal S1-S2, without murmur, gallop, or rub. PMI not laterally displaced. Abdomen with active bowel sounds, soft, nontender. Left hallux is markedly swollen and warm to touch. Nail is avulsed seen. Decreased pulses on the left foot, dorsalis pedis as well as posterior tib. Const: Vital Signs, click to edit/add: Vital Signs - 24 hr 05/29/24 16:10 05/29/24 20:00 05/29/24 21:08 Temperature 98.7 F 98.7 F Pulse Rate [Left P ulse Oximeter] 105 H 89 Pulse Rate [Pulse Oximeter] Respiratory Rate 20 20 Blood Pressure [Le ft Arm] Blood Pressure [Ri ght Upper Arm] 133/83 125/78 Pulse Oximetry 98 98 98 Oxygen Delivery Me thod Room Air Room Air 05/29/24 21:17 05/29/24 22:11 05/30/24 02:59 Temperature 98.7 F 98.1 F 98.0 F Pulse Rate [Left P ulse Oximeter] 89 Pulse Rate [Pulse Oximeter] 95 83 Respiratory Rate 20 16 18 Blood Pressure [Le ft Arm] 120/70 150/95 H Blood Pressure [Ri ght Upper Arm] 125/78 Pulse Oximetry 100 100 Oxygen Delivery Me thod Room Air Room Air 05/30/24 08:30 05/30/24 08:30 Temperature 98.4 F Pulse Rate [Left P ulse Oximeter] Pulse Rate [Pulse Oximeter] 77 77 Respiratory Rate 18 18 Blood Pressure [Le ft Arm] 140/90 H Blood Pressure [Ri ght Upper Arm] Pulse Oximetry 98 Oxygen Delivery Me thod Room Air Labs Labs: Laboratory Results - last 24 hr 05/29/24 05/29/24 05/30/24 16:53 17:30 05:53 WBC 6.39 4.88 RBC 4.94 4.90 Hgb 13.7 13.7 Hct 41.5 41.2 MCV 84 84 MCH 28 28 MCHC 33 33 RDW Coeff of Arsen 12.3 Plt Count 268 249 Neut % (Auto) 66.1 Lymph % (Auto) 23.5 [place] % (Auto) 8.8 Eos % (Auto) 1.4 Baso % (Auto) 0.2 Neut # (Auto) 4.23 Lymph # (Auto) 1.50 [place] # (Auto) 0.60 Eos # (Auto) 0.09 Baso # (Auto) 0.01 Abs Immat Gran (auto) 0.00 Imm/Tot Granulo (auto) 0.0 ESR 33 H Sodium 136 138 Potassium 4.2 4.1 Chloride 100 103 Carbon Dioxide 26 26 Anion Gap 10 9 BUN 27 24 Creatinine 0.9 1.0 Estimated Creat Clear 82.99 82.99 Estimated GFR 96 85 Glucose 160 H 127 H Calcium 9.1 9.1 C-Reactive Protein 4.3 H 3.7 H Procalcitonin 0.[address] scan - left foot: Attestation: I have reviewed the pertinent imaging results. Radiologist's impression: Findings: Bones: There is osseous destruction and fragmentation involving the tuft of the great toe distal phalanx. Fragmentation also extends more proximally into the base of the distal phalanx without definite intra-articular extension. There is a thin rim enhancing collection along the dorsal margin of the distal phalanx (series 8, image 19 and series 5, image 11) compatible with a subperiosteal abscess. This collection measures approximately 4 mm in thickness. Postoperative changes following 3rd toe amputation at the level of the metatarsophalangeal joint. Healed fracture deformity of the 2nd metatarsal diaphysis. Bipartite hallux tibial sesamoid. Soft tissues: Circumferential soft tissue swelling and enhancement of the great toe with plantar ulcer. Muscles: Mild fatty replaced in the intrinsic foot musculature. No intramuscular fluid collection. Tendons: Os peroneum. Tendons are normal in caliber and attenuation. Impression: 1. Cellulitis of the great toe with plantar ulcer and underlying osteomyelitis of the distal phalanx. 2. Thin subperiosteal abscess along the dorsal margin of the distal phalanx. ECG Attestation: I personally reviewed and interpreted this ECG as follows: Prior ECG tracings: not available for review Interpretation: Normal sinus rhythm. Possible left atrial enlargement.
--- NOTE | 2024-05-30 10:14 | PM.PODCN1 ---
[facility] - Podiatry Data of Consult Time Seen by Provider: 05:55 Date Seen: 05/30/24 Patient: Melvin Patient Consult date: 05/30/24 Requesting physician: Stacey Pettit MD Primary care provider: Tere Koenig MD Consult Narrative Reason for consult: Left great toe abscess with osteomyelitis Narrative: Teodoro Veloz is a 64 year old male with type 2 diabetes that developed a blister that then progressed to cellulitis and abscess. 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 He was initially seen in urgent care and then by Podiatry. He was placed on antibiotics but has failed outpatient antibiotics. Toe has worsened and he was then seen in the emergency department. At that time CT scan was obtained and osteomyelitis was found within the distal phalanx. He was admitted the hospital for IV antibiotics and probable surgical consultation. He currently denies any fever chills nausea vomiting. He does express feeling sick and run down. cc:: CC: Stacey Pettit MD Review of Systems Status of ROS: Reports: 10 or more systems reviewed and unremarkable except as noted in History and below [facility] Medical History Hypercholesterolemia ?E78.00 - Pure hypercholesterolemia, unspecified (ICD-10) Type 2 diabetes mellitus ?E11.9 - Type 2 diabetes mellitus without complications (ICD-10) Social History What is your current living situation?: I presently have a place to live Problems where you live: no known problems Problems where you live details: n/a In the past 12 months, utilities in danger of being shut off: no In past 12 months, lack of transportation kept you from medical appts, meetings, work, or getting things needed for daily living: no In the past 12 mos, have been you worried that your food would run out before you had money to buy more?: never true In the past 12 mos, the food you bought just didn't last and you didn't have money to buy more?: never true Highest level of school completed/degree received: some college, no degree Smoking Status: Never smoker How often do you have a drink containing alcohol: 2-3 times a week How many standard drinks containing alcohol do you have on a typical day: 3 or 4 How often do you have six or more drinks on one occasion: Less than monthly AUDIT-C Alcohol total score: 5 Non-prescribed substance use: denies use How often does anyone, including family, friends and others, physically hurt you: never How often does anyone, including family, friends and others, insult or talk down to you: never How often does anyone, including family, friends and others, threaten you with harm: never How often does anyone, including family, friends and others, scream or curse at you: never Exam Narrative: Exam Narrative: General: No distress vascular: Palpable pedal pulses both DP and PT left. Neuro: Diminished sensation to light touch to the forefoot. Musculoskeletal: Hammertoe was deformities of digits 1 through 5 Left. Normal muscle strength. derm: Significant erythema edema of the Left great toe extending onto the dorsal forefoot. There is open ulceration to the distal tip of the great toe with necrotic subcutaneous tissue. there is purulent drainage from the distal toe. There is fluctuance. CT: Osteomyelitis distal phalanx left great toe labs: ESR 33, CRP 3.7 assessment: Diabetic foot infection left with abscess, osteomyelitis distal phalanx left great toe plan: I reviewed clinical and radiographic findings with Teodoro. Unfortunately developed very severe infection which is now into the bone. I discussed with him that this is now a surgical issue and he needs immediate partial amputation of the distal toe. This will help alleviate the infection and then we will plan to close the wound a later date. Continue with IV antibiotics until cultures complete. Will not need long-term IV antibiotics as we will surgically care the osteomyelitis. Recommend he proceed with surgery today. Has been NPO. I discussed the procedure, recovery, expectation potential complications. He will need staged procedures. He is at risk of limb loss. All questions answered. Const: Vital Signs, click to edit/add: Vital Signs - 24 hr 05/29/24 16:10 05/29/24 20:00 05/29/24 21:08 Temperature 98.7 F 98.7 F Pulse Rate [Left P ulse Oximeter] 105 H 89 Pulse Rate [Pulse Oximeter] Respiratory Rate 20 20 Blood Pressure [Le ft Arm] Blood Pressure [Ri ght Upper Arm] 133/83 125/78 Pulse Oximetry 98 98 98 Oxygen Delivery Me thod Room Air Room Air 05/29/24 21:17 05/29/24 22:11 05/30/24 02:59 Temperature 98.7 F 98.1 F 98.0 F Pulse Rate [Left P ulse Oximeter] 89 Pulse Rate [Pulse Oximeter] 95 83 Respiratory Rate 20 16 18 Blood Pressure [Le ft Arm] 120/70 150/95 H Blood Pressure [Ri ght Upper Arm] 125/78 Pulse Oximetry 100 100 Oxygen Delivery Me thod Room Air Room Air 05/30/24 08:30 05/30/24 08:30 Temperature 98.4 F Pulse Rate [Left P ulse Oximeter] Pulse Rate [Pulse Oximeter] 77 77 Respiratory Rate 18 18 Blood Pressure [Le ft Arm] 140/90 H Blood Pressure [Ri ght Upper Arm] Pulse Oximetry 98 Oxygen Delivery Ms thod Room Air Nail Debridement Qualifies If: Qualifiers If:: A patient qualifies for nail debridement if they have: 1 class A finding (Q7) 2 class B findings (Q8) OR 1 class B & 2 class C findings in addition to a primary condition (Q9)
[2024-05-30] MEDS: BUPIVACAINE 0.25% 30 ML INJECTION (11:40)
--- NOTE | 2024-05-30 12:22 | W.PODPROC_ITS ---
Date of Procedure: 05/30/24 Surgeon: Derrick Mondragon DPM Pre-op Diagnosis: 1. Left diabetic foot infection 2. Osteomyelitis left great toe Post-op Diagnosis: 1. Left diabetic foot infection 2. Osteomyelitis left great toe Type of Procedure: Partial amputation left great toe Indications: Patient was admitted to the hospital for severe left foot infection with osteomyelitis of left great toe with abscess. He is in need of surgical intervention. I reviewed the procedure, recovery, expectation potential c omplications. These include but not limited to: Poor wound healing, need for additional surgery, potential loss of limb, Potential loss of life. All questions answered and written consent was obtained. Site marked. He understands this will be a staged procedure will need additional surgery. Procedure Description: Patient brought the operating room placed supine position on operating table. IV sedation was initiated local anesthetic injected into the left foot. He was prepped and draped in sterile fashion. Standard time-out protocol was followed. Left foot was exsanguinated the tourniquet inflated. [place] incision was made just distal to the IPJ a left great toe. Incision was carried to bone and the toe was disarticulated at the IPJ and removed. Distal phalanx was necrotic and wound cultures obtained from this area. Remainder is sent to pathology. There was significant purulence extending to the joint but not invading the joint. There is no purulence coursing along the of the flexor or extensor tendons. Wound was thoroughly irrigated normal sterile saline. Tourniquet was released and the bleeding vessels cauterized. Saline moistened gauze pack the wound open. Sterile dressing applied. He was transferred from [place] to [facility] with vital signs stable and vascular status intact. Complications: None apparent Anesthesia: MAC and local Hemostasis: ankle Estimated blood loss (mL): 5 Specimens: specimen obtained, sent to pathology (Culture sent for aerobic and anaerobic with sensitivities, distal phalanx sent to pathology) Disposition: floor
--- NOTE | 2024-05-30 12:37 | W.ANESCHARGE ---
Anesthesia Charges Start Date/Time Anesthesia Start Date: 05/30/24 Anesthesia Start Time: 11:33 Stop Date/Time Anesthesia Stop Date: 05/30/24 Anesthesia Stop Time: 12:30
[2024-05-30] MEDS: ENOXAPARIN 40 MG/0.4 ML INJ SUBCUT (20:29)
[2024-05-30] MEDS: ATORVASTATIN CALCIUM 40 MG TABLET PO (20:29)
[2024-05-30] MEDS: INSULIN ASPART 100 UNIT/ML SUBCUT (20:43)
[2024-05-31 03:10] VITALS: BP 155/96; PULSE 90; RESP 18; TEMP 36.7; O2SAT 96
[2024-05-31] MEDS: PIPERACILLIN/TAZOBACTAM 3.375 GM in 0.9 % SODIUM CHLORIDE Mini-bag 100 ML IVPB ×4 (03:14→21:35)
[2024-05-31 06:52] LABS: Hematocrit 42.9 % (37.0-53.0); Hemoglobin* 14.3 gm/dL (13.5-17.5); Mean Corpuscular HGB Conc 33 gm/dL (32-36); Mean Corpuscular Hemoglobin 28 pg (26-34); Mean Corpuscular Volume 84 fL (80-100); Platelet Count* 271 K/uL (140-440); Red Blood Count 5.14 m/uL (4.30-5.90); White Blood Count* 6.04 K/uL (4.50-11.00)
[2024-05-31 06:54] LABS: Slide Review Reflex No
[2024-05-31 07:00] VITALS: BP 138/84; PULSE 74; RESP 16; TEMP 36.7; O2SAT 99
[2024-05-31 07:11] LABS: Chloride* 103 mmol/L (96-114)
[2024-05-31 07:12] LABS: Potassium* 4.1 mmol/L (3.6-5.1); Sodium* 137 mmol/L (135-149)
[2024-05-31 07:14] LABS: Est. Creatinine Clearance* 82.99; Estimated Glomerular Filt Rate 85 ml/min
[2024-05-31 07:15] LABS: Anion Gap 10 mEq/L (7-15); Blood Urea Nitrogen* 22 mg/dL (7-30); Carbon Dioxide* 24 mmol/L (20-32); Glucose* 139 mg/dL (60-115)
[2024-05-31 07:18] LABS: C Reactive Protein* 1.9 mg/dL (0.5-1.0)
--- NOTE | 2024-05-31 07:33 | PC.NURSE ---
Pt alert and oriented x3. Afebrile. Denies pain, chest pain, SOB, and N/V. Pt?s MAGDALENA wrap and left toe dressing is CDI. Pt is up SBA with walker, voiding, and tolerating a regular diet. ?
[2024-05-31] MEDS: lisinopriL 5 MG TABLET PO (07:52)
[2024-05-31] MEDS: SODIUM CHLORIDE 0.9 % (FLUSH) 10 ML SYRINGE 5 ML IVF ×2 (07:52→21:36)
[2024-05-31] MEDS: EMPAGLIFLOZIN 10 MG TABLET PO (07:52)
--- NOTE | 2024-05-31 08:24 | PM.IMPN1 ---
Progress Note: A&P Assessment and plan (1) Osteomyelitis: Problem details: -CT shows osteolytic destruction of the distal phalanx of the great toe consistent with osteomyelitis. On the coronal soft tissue windows there is a rim enhancing low-attenuation collection along the dorsal aspect of the distal phalanx of the left great toe consistent with a subperiosteal abscess. Diffuse skin thickening and subcutaneous edema of the left great toes consistent with cellulitis -afebrile, no leukocytosis, procalcitonin 0.11, CRP 4.3, wound culture pending -continue zosyn as preliminary wound culture is growing multiple Gram-negative rods -DC IV vancomycin -wound cares -ED provider discussed with our assistant program director, Dr. Mondragon, who saw the patient the morning of 05/30/2024 and they decided to go to the OR for definitive surgical management of the abscess and osteomyelitis. Status post partial amputation of left big toe. Wound is still open, podiatry will take him back for OR for closure. -h/o left 3rd toe amputation (2021) -PT and OT consultation -he will need to work closely with his assistant program director regarding orthotics and foot care hereafter Status: Acute (2) Cellulitis: Problem details: -findings and management as above Status: Acute (3) Abscess of toe of left foot: Problem details: -findings and management as above Status: Acute (4) Type 2 diabetes mellitus: Problem details: -with peripheral neuropathy -most recent A1c 6.7 -hold metformin, continue Jardiance. Continue ACEI/ARB -glucose checks ACHS -sliding scale insulin, low dose Status: Acute (5) Hypercholesterolemia: Problem details: -continue statin Status: Acute Plan As above Time Spent With Patient Total time spent: Today I spent 50 minutes seeing the patient, reviewing Expanse and EPIC notes/diagnostics, discussing the care plan with our care time that includes social work, PT/OT, pharmacy, RT, correction and documenting my impressions and plan in the medical record. Subjective Date Seen: 05/31/24 Interval history: Patient was seen and examined at bedside. He states that he is doing great, no pain or any complaints. He was able to urinate and is having bowel movements. Exam Narrative: Exam Narrative: Physical exam GENERAL: Comfortable, no acute distress. HEAD AND NECK: Atraumatic, normocephalic CARDIOVASCULAR: RRR. Normal S1, S2. No murmurs. RESPIRATORY: Clear to auscultation B/L. Good air entry B/L. No wheezes or rhonchi. GASTROINTESTINAL: Not distended, not tender to palpation. NEUROLOGY: Alert, awake, oriented X 3. Normal speech. No focal weakness. MUSCULOSKELETAL: Left foot with clean dressing and bandage. PSYCH: Normal mood, normal affect. Const: Vital Signs, click to edit/add: Vital Signs - 24 hr 05/30/24 08:30 05/30/24 08:30 05/30/24 12:30 Temperature 98.4 F 97.0 F L Pulse Rate [Pulse Oximeter] 77 77 79 Respiratory Rate 18 18 18 Blood Pressure [Le ft Arm] 140/90 H 119/80 Pulse Oximetry 98 97 Oxygen Delivery Me thod Room Air Room Air 05/30/24 12:45 05/30/24 13:00 05/30/24 16:00 Temperature 97.0 F L 96.9 F L 97.0 F L Pulse Rate [Pulse Oximeter] 72 74 81 Respiratory Rate 18 18 18 Blood Pressure [Le ft Arm] 135/90 H 137/80 141/78 H Pulse Oximetry 99 98 98 Oxygen Delivery Me thod Room Air Room Air Room Air 05/30/24 16:00 05/30/24 20:26 05/30/24 23:20 Temperature 98.6 F 98.4 F Pulse Rate [Pulse Oximeter] 81 71 68 Respiratory Rate 18 16 16 Blood Pressure [Le ft Arm] 135/84 135/89 Pulse Oximetry 98 98 Oxygen Delivery Oh thod Room Air Room Air 05/31/24 03:10 05/31/24 07:00 05/31/24 07:00 Temperature 98.0 F 98.1 F Pulse Rate [Pulse Oximeter] 90 74 74 Respiratory Rate 18 16 16 Blood Pressure [Le ft Arm] 155/96 H 138/84 Pulse Oximetry 96 99 Oxygen Delivery Me thod Room Air Room Air Labs Labs: Laboratory Results - last 24 hr 05/30/24 05/31/24 05:53 06:01 WBC 6.04 RBC 5.14 Hgb 14.3 Hct 42.9 MCV 84 MCH 28 MCHC 33 Plt Count 271 ESR 33 H Sodium 137 Potassium 4.1 Chloride 103 Carbon Dioxide 24 Anion Gap 10 BUN 22 Creatinine 1.0 Estimated Creat Clear 82.99 Estimated GFR 85 Glucose 139 H Calcium 9.0 C-Reactive Protein 1.9 H
--- NOTE | 2024-05-31 10:06 | NUTR.NU ---
RDN with diet education related to diabetic diet. Patient admitted for osteomyelitis, cellulitis, abscess of the left 1st toe status post partial amputation of toe 05/30. Current weight 181 lb 5oz; height 6ft; BMI 24.6 kg/m2. Patient reports his weight has been stable recently. Current diet is diabetic. Meal intakes have been 100% since admit. RDN visited with patient whom reports a good appetite. He tries to stick to 2-4 carb choices at each meal. He declined diet education related to diabetes at this time. RDN encouraged patient to let staff know if he has any questions or concerns. No nutrition interventions at this time. RDN will continue to monitor.
[2024-05-31 11:16] VITALS: BP 125/84; PULSE 95; RESP 16; TEMP 36.8; O2SAT 100
--- NOTE | 2024-05-31 12:33 | W.PM.PODPN ---
Podiatry-PN: Subj Subjective Time Seen by Provider: 12:33 Date Seen: 05/31/24 Interval history: Patient seen bedside today postop day 1 following partial open amputation left great toe. He states he is doing well without complaints. Exam Narrative: Exam Narrative: General: No distress Vascular: Palpable pedal pulses. Neuro: Insensate to light touch. Musculoskeletal: Partial amputation great toe left foot. Complete amputation 3rd toe left foot. Derm: Packing was removed. Wound shows no evidence of increased necrosis. No purulence. Mild active bleeding following removal of packing. Erythema edema much improved. Flap margins appear viable. Assessment: S/p partial open great toe amputation left foot postop day 1, osteo mild left great toe, diabetic foot infection left Plan: Foot has improved significantly. Packing with wet-to-dry dressing replaced. Continue with IV antibiotics until cultures complete. Plan for return to OR tomorrow late afternoon for revision and primary closure. I reviewed the plan with Teodoro and has no questions. Hopeful discharge home on if cultures returned sensitivities. Const: Vital Signs, click to edit/add: Vital Signs - 24 hr 05/30/24 12:45 05/30/24 13:00 05/30/24 16:00 Temperature 97.0 F L 96.9 F L 97.0 F L Pulse Rate [Pulse Oximeter] 72 74 81 Respiratory Rate 18 18 18 Blood Pressure [Le ft Arm] 135/90 H 137/80 141/78 H Blood Pressure [Ri ght Arm] Pulse Oximetry 99 98 98 Oxygen Delivery Me thod Room Air Room Air Room Air 05/30/24 16:00 05/30/24 20:26 05/30/24 23:20 Temperature 98.6 F 98.4 F Pulse Rate [Pulse Oximeter] 81 71 68 Respiratory Rate 18 16 16 Blood Pressure [Le ft Arm] 135/84 135/89 Blood Pressure [Ri ght Arm] Pulse Oximetry 98 98 Oxygen Delivery Me thod Room Air Room Air 05/31/24 03:10 05/31/24 07:00 05/31/24 07:00 Temperature 98.0 F 98.1 F Pulse Rate [Pulse Oximeter] 90 74 74 Respiratory Rate 18 16 16 Blood Pressure [Le ft Arm] 155/96 H 138/84 Blood Pressure [Ri ght Arm] Pulse Oximetry 96 99 Oxygen Delivery Me thod Room Air Room Air 05/31/24 11:16 Temperature 98.2 F Pulse Rate [Pulse Oximeter] 95 Respiratory Rate 16 Blood Pressure [Le ft Arm] Blood Pressure [Ri ght Arm] 125/84 Pulse Oximetry 100 Oxygen Delivery Me thod Room Air Podiatry-PN: Obj Labs Labs: Laboratory Results - last 24 hr 05/31/24 06:01 WBC 6.04 RBC 5.14 Hgb 14.3 Hct 42.9 MCV 84 MCH 28 MCHC 33 Plt Count 271 Sodium 137 Potassium 4.1 Chloride 103 Carbon Dioxide 24 Anion Gap 10 BUN 22 Creatinine 1.0 Estimated Creat Clear 82.99 Estimated GFR 85 Glucose 139 H Calcium 9.0 C-Reactive Protein 1.9 H
[2024-05-31 15:00] VITALS: BP 138/83; PULSE 78; RESP 16; TEMP 37.2; O2SAT 98
--- NOTE | 2024-05-31 18:59 | PC.NURSE ---
End of shift [id number]: Pt has been A&O, afebrile and VSS this shift. He is independent in his room and compliant with NWB to left foot. Dressing was changed by this afternoon & there is some scant bloody drainage on the MAGDALENA wrap. Pt has no c/o pain d/t neuropathy in his feet. PIV in left wrist is SL and C/D/I. Continues on IV Zosyn q6H but IV Vancomycin discontinued today. Wound culture is growing gram negative rods. Blood sugars have been 136 > 145 > 139; no insulin given today. Pt will be NPO at 0000 for revision & primary closure tomorrow. Hopeful discharge home on . ?
[2024-05-31 19:50] VITALS: BP 124/83; PULSE 65; RESP 16; TEMP 37; O2SAT 97
[2024-05-31] MEDS: ENOXAPARIN 40 MG/0.4 ML INJ SUBCUT (21:33)
[2024-05-31] MEDS: ATORVASTATIN CALCIUM 40 MG TABLET PO (21:34)
[2024-06-01] VITALS (17 sets, daily range): BP systolic 121–156; BP diastolic 81–98; PULSE 63–102; RESP 16–20; TEMP 36.5–37; O2SAT 97–100
[2024-06-01] MEDS: PIPERACILLIN/TAZOBACTAM 3.375 GM in 0.9 % SODIUM CHLORIDE Mini-bag 100 ML IVPB ×4 (03:06→21:56)
--- NOTE | 2024-06-01 06:24 | PC.NURSE ---
Pt alert and oriented x3. Afebrile. Pt denies pain, chest pain, and N/V. Pt is up with walker and non-weight bearing on left foot. Left foot dressing is MAGDALENA wrapped and CDI. Pt has been NPO since 99.
[2024-06-01 06:35] LABS: Hemoglobin* 13.3 gm/dL (13.5-17.5); Mean Corpuscular HGB Conc 33 gm/dL (32-36); Mean Corpuscular Hemoglobin 28 pg (26-34); Mean Corpuscular Volume 84 fL (80-100); Platelet Count* 250 K/uL (140-440); Red Blood Count 4.74 m/uL (4.30-5.90); Slide Review Reflex No; White Blood Count* 6.35 K/uL (4.50-11.00)
[2024-06-01 06:48] LABS: Chloride* 105 mmol/L (96-114); Sodium* 138 mmol/L (135-149)
[2024-06-01 06:49] LABS: Potassium* 4.3 mmol/L (3.6-5.1)
[2024-06-01 06:51] LABS: Anion Gap 8 mEq/L (7-15); Carbon Dioxide* 25 mmol/L (20-32); Creatinine* 1.1 mg/dL (0.5-1.5); Est. Creatinine Clearance* 75.44; Estimated Glomerular Filt Rate 75 ml/min
[2024-06-01 06:52] LABS: Blood Urea Nitrogen* 27 mg/dL (7-30); Calcium* 8.9 mg/dL (8.4-10.6); Glucose* 148 mg/dL (60-115)
--- NOTE | 2024-06-01 07:27 | P.IMPN_ITS ---
Progress Note: A&P Assessment and plan (1) Osteomyelitis: Problem details: -CT shows osteolytic destruction of the distal phalanx of the great toe consistent with osteomyelitis. On the coronal soft tissue windows there is a rim enhancing low-attenuation collection along the dorsal aspect of the distal phalanx of the left great toe consistent with a subperiosteal abscess. Diffuse skin thickening and subcutaneous edema of the left great toes consistent with cellulitis -afebrile, no leukocytosis, procalcitonin 0.11, CRP 4.3, wound culture pending -continue zosyn as preliminary wound culture is growing multiple Gram-negative rods (Pseudomonas, Citrobacter, Enterobacter cloacae). Pending complete Cx & sensitivity. -DC IV vancomycin -wound cares -consulted rocket engine tester, Dr. Mondragon, S/p partial open great toe amputation left foot 05/30/2024. -Wound is still open, podiatry will take him back for OR for closure. -h/o left 3rd toe amputation (2021) -PT and OT consultation -Packing with wet-to-dry dressing. -Plan for return to OR 06/01 late afternoon for revision and primary closure. -Per Podiatry: May DC home on if cultures returned sensitivities. -May need infectious disease consult. Status: Acute (2) Status post amputation of toe: Problem details: -findings and management as above Status: Acute (3) Cellulitis: Problem details: -findings and management as above Status: Acute (4) Abscess of toe of left foot: Problem details: -findings and management as above Status: Acute (5) Type 2 diabetes mellitus: Problem details: -with peripheral neuropathy -most recent A1c 6.7 -hold metformin, continue Jardiance. Continue ACEI/ARB -glucose checks ACHS -sliding scale insulin, low dose Status: Acute (6) Hypercholesterolemia: Problem details: -continue statin Status: Acute Plan As above Time Spent With Patient Total time spent: Today I spent 50 minutes seeing the patient, reviewing Expanse and EPIC notes/diagnostics, discussing the care plan with our care time that includes social work, PT/OT, pharmacy, RT, nursing home and documenting my impressions and plan in the medical record. Subjective Date Seen: 06/01/24 Interval history: Patient was seen and examined. S/p partial open great toe amputation left foot. Sitting on a chair. No pain, no new complaints. Pt is able to urinate and is having bowel movements. Exam Narrative: Exam Narrative: GENERAL: Comfortable, no acute distress. HEAD AND NECK: Atraumatic, normocephalic CARDIOVASCULAR: RRR. Normal S1, S2. No murmurs. RESPIRATORY: Clear to auscultation B/L. Good air entry B/L. No wheezes or rhonchi. GASTROINTESTINAL: Not distended, not tender to palpation. NEUROLOGY: Alert, awake, oriented X 3. Normal speech. No focal weakness. MUSCULOSKELETAL: Left foot with clean dressing and bandage (Partial amputation great toe left foot. Complete amputation 3rd toe left foot). PSYCH: Normal mood, normal affect. Const: Vital Signs, click to edit/add: Vital Signs - 24 hr 05/31/24 11:16 05/31/24 15:00 05/31/24 15:00 Temperature 98.2 F 98.9 F Pulse Rate [Pulse Oximeter] 95 78 78 Respiratory Rate 16 16 16 Blood Pressure [Ri ght Arm] 125/84 138/83 Pulse Oximetry 100 98 Oxygen Delivery Me thod Room Air Room Air 05/31/24 19:50 06/01/24 00:10 06/01/24 03:00 Temperature 98.6 F 98.0 F 98.0 F Pulse Rate [Pulse Oximeter] 65 76 70 Respiratory Rate 16 18 16 Blood Pressure [Ri ght Arm] 124/83 145/96 H 142/89 H Pulse Oximetry 97 98 99 Oxygen Delivery Me thod Room Air Room Air Room Air Labs Labs: Laboratory Results - last 24 hr 06/01/24 06:09 WBC 6.35 RBC 4.74 Hgb 13.3 L Hct 40.0 MCV 84 MCH 28 MCHC 33 Plt Count 250 Sodium 138 Potassium 4.3 Chloride 105 Carbon Dioxide 25 Anion Gap 8 BUN 27 Creatinine 1.1 Estimated Creat Clear 75.44 Estimated GFR 75 Glucose 148 H Calcium 8.9
[2024-06-01] MEDS: lisinopriL 5 MG TABLET PO (08:42)
[2024-06-01] MEDS: SODIUM CHLORIDE 0.9 % (FLUSH) 10 ML SYRINGE 5 ML IVF ×2 (08:44→21:56)
[2024-06-01] MEDS: BUPIVACAINE 0.25% 30 ML INJECTION (16:51)
--- NOTE | 2024-06-01 18:00 | P.ANES_ITS ---
Anesthesia Charges Start Date/Time Anesthesia Start Date: 06/01/24 Anesthesia Start Time: 16:44 Stop Date/Time Anesthesia Stop Date: 06/01/24 Anesthesia Stop Time: 17:53 Summary Emergency: FIELD REPRESENTATIVE
--- NOTE | 2024-06-01 18:16 | W.PODPROC_ITS ---
Date of Procedure: 06/01/24 Surgeon: Derrick Mondragon DPM Pre-op Diagnosis: 1. Osteomyelitis left great toe 2. Diabetic foot infection left Post-op Diagnosis: 1. Osteomyelitis left great toe 2. Diabetic foot infection left Type of Procedure: 1. Revision left great toe amputation with delayed primary closure Indications: Patient is hospitalized for severe diabetic left great toe infection. He also has underlying osteomyelitis. He had initial surgery to amputate remove the distal phalanx. He has returned to surgery today for revision of the surgical site and delayed primary closure. I reviewed the procedure, recovery, expectations and potential complications with the patient. These include but no t limited to: Poor wound healing, continued infection, potential need for future surgery, deep venous thrombosis, pulmonary embolism, possible . All questions answered and written consent obtained. Site marked. Procedure Description: Patient brought the operating room placed in supine position. IV sedation was initiated local anesthetic injected into the left foot. He was prepped and draped in sterile fashion. Standard time-out protocol followed. The left foot was exsanguinated the tourniquet inflated. Wound was thoroughly irrigated with normal sterile saline. Soft tissues were freed up around the proximal phalangeal head which was then resected with a sagittal saw removing the condyles. Wound was then debrided of any nonviable tissue and the amputation margins were freshened with a scalpel. Wound again irrigated with normal sterile saline. Tourniquet was released and all bleeding vessels cauterized. The dorsal and plantar flaps were then brought together and closed with 3-0 nylon. Sterile dressing was applied. He was transferred [facility] [place] to [facility] with vital signs stable and vascular status intact. Will continue IV antibiotics until cultures complete. Plan for removal discharge tomorrow. Weightbearing as tolerated. Anesthesia: MAC and local Hemostasis: ankle Estimated blood loss (mL): 10 Specimens: none sent Disposition: floor
[2024-06-01] MEDS: ATORVASTATIN CALCIUM 40 MG TABLET PO (21:54)
[2024-06-01] MEDS: ENOXAPARIN 40 MG/0.4 ML INJ SUBCUT (21:55)
[2024-06-02 00:19] VITALS: BP 123/80; PULSE 83; RESP 18; TEMP 37.3; O2SAT 96
[2024-06-02 03:00] VITALS: BP 137/85; PULSE 83; RESP 20; TEMP 37.2; O2SAT 96
[2024-06-02] MEDS: PIPERACILLIN/TAZOBACTAM 3.375 GM in 0.9 % SODIUM CHLORIDE Mini-bag 100 ML IVPB ×2 (03:51→08:43)
[2024-06-02 06:32] LABS: Hematocrit 41.8 % (37.0-53.0); Hemoglobin* 13.9 gm/dL (13.5-17.5); Mean Corpuscular HGB Conc 33 gm/dL (32-36); Mean Corpuscular Hemoglobin 28 pg (26-34); Mean Corpuscular Volume 83 fL (80-100); Platelet Count* 276 K/uL (140-440); Red Blood Count 5.03 m/uL (4.30-5.90); White Blood Count* 7.98 K/uL (4.50-11.00)
[2024-06-02 06:41] LABS: Slide Review Reflex No
--- NOTE | 2024-06-02 06:41 | W.PM.PODPN ---
Podiatry-PN: Subj Subjective Time Seen by Provider: 06:15 Date Seen: 06/02/24 Interval history: Patient was seen and examined. He is postop day 1 revision great toe amputation left foot with delayed primary closure. He has no current complaints. Exam Narrative: Exam Narrative: General: No distress Dressing is clean with a minimal amount of bloody strike through less than a quarter size. Removal of dressings reveals well coapted incision with sutures intact. Minimal edema and minimal erythema. No active bleeding or drainage. Culture: Wound Culture* Final ML Organism 1 Citrobacter freundii Quantity of Growth Large amount Organism 2 ENTEROBACTER CLOACAE COMPLEX Quantity of Growth Large amount Organism 3 Pseudomonas aeruginosa Quantity of Growth Large amount C freundii ENTCPX P aerugino FLORENTINO RX FLORENTINO RX FLORENTINO RX --------- --- --------- --- --------- --- Cefazolin >=64 R >=64 R Cefepime <=1 S <=1 S <=1 S Cefoxitin <=4 R >=64 R Ceftazidime <=1 S <=1 S 2 S Ceftriaxone <=1 S <=1 S Ciprofloxacin <=0.25 S <=0.25 S <=0.25 S Ertapenem <=0.5 S <=0.5 S Gentamicin <=1 S <=1 S Imipenem <=0.25 S 1 S 2 S Levofloxacin 0.25 S <=0.12 S 0.5 S Tobramycin <=1 S <=1 S <=1 S Trimethoprim/Sulfamethoxazole <=20 S Piperacillin/Tazobactam <=4 S Assessment: S/P left great toe revision amputation with delayed primary closure POD#1, left diabetic foot infection, osteomyelitis left great toe Plan: Surgical cure of the osteomyelitis has been obtained. Incision is looking quite good. Sterile dressing applied. All infectious bacterium are sensitive to fluoroquinolones. Recommend 2 weeks of oral Levaquin 750 mg once daily. Patient has follow-up appointment already scheduled next week with myself. He is weight-bearing as tolerated in a surgical shoe. He should maintain limited light activity. Dressing should remain clean, dry and intact. No dressing change needed until follow-up. Recommend 81 mg aspirin x2 once daily upon discharge. Const: Vital Signs, click to edit/add: Vital Signs - 24 hr 06/01/24 07:00 06/01/24 07:00 06/01/24 11:00 Temperature 98.0 F 97.9 F Pulse Rate Pulse Rate [Pulse Oximeter] 77 77 63 Respiratory Rate 20 20 20 Blood Pressure Blood Pressure [Ri ght Arm] 138/82 156/94 H Pulse Oximetry 99 99 Oxygen Delivery Me thod Room Air Room Air 06/01/24 15:00 06/01/24 15:00 06/01/24 18:06 Temperature 98.4 F 97.7 F Pulse Rate 95 Pulse Rate [Pulse Oximeter] 80 80 Respiratory Rate 20 20 20 Blood Pressure 131/90 H Blood Pressure [Ri ght Arm] 134/98 H Pulse Oximetry 99 99 Oxygen Delivery Me thod Room Air Room Air 06/01/24 18:12 06/01/24 18:36 06/01/24 18:51 Temperature 97.7 F 97.7 F 97.7 F Pulse Rate 102 H 94 96 Pulse Rate [Pulse Oximeter] Respiratory Rate 18 20 20 Blood Pressure 121/82 140/95 H 138/92 H Blood Pressure [Ri ght Arm] Pulse Oximetry 98 100 98 Oxygen Delivery Me thod Room Air Room Air Room Air 06/01/24 19:05 06/01/24 19:30 06/01/24 19:35 Temperature 97.7 F Pulse Rate 96 92 Pulse Rate [Pulse Oximeter] 92 Respiratory Rate 20 20 20 Blood Pressure 131/87 137/88 Blood Pressure [Ri ght Arm] 137/88 Pulse Oximetry 98 97 97 Oxygen Delivery Me thod Room Air Room Air Room Air 06/01/24 20:05 06/01/24 21:05 06/01/24 22:00 Temperature 98.6 F 98.3 F Pulse Rate 85 86 95 Pulse Rate [Pulse Oximeter] Respiratory Rate Blood Pressure 133/89 128/93 H 133/81 Blood Pressure [Ri ght Arm] Pulse Oximetry 98 99 Oxygen Delivery Me thod Room Air Room Air Room Air 06/01/24 22:05 06/01/24 23:10 06/02/24 00:19 Temperature 98.3 F 98.4 F 99.1 F Pulse Rate 102 H 83 Pulse Rate [Pulse Oximeter] 95 Respiratory Rate 18 20 18 Blood Pressure 135/97 H 123/80 Blood Pressure [Ri ght Arm] 133/81 Pulse Oximetry 99 96 Oxygen Delivery Me thod Room Air Room Air Room Air 06/02/24 03:00 Temperature 98.9 F Pulse Rate Pulse Rate [Pulse Oximeter] 83 Respiratory Rate 20 Blood Pressure Blood Pressure [Ri ght Arm] 137/85 Pulse Oximetry 96 Oxygen Delivery Me thod Room Air Podiatry-PN: Obj Labs Labs: Laboratory Results - last 24 hr 06/01/24 06/02/24 06:09 06:07 WBC 7.98 RBC 5.03 Hgb 13.9 Hct 41.8 MCV 83 MCH 28 MCHC 33 Plt Count 276 Sodium 138 Potassium 4.3 Chloride 105 Carbon Dioxide 25 Anion Gap 8 BUN 27 Creatinine 1.1 Estimated Creat Clear 75.44 Estimated GFR 75 Glucose 148 H Calcium 8.9
[2024-06-02 06:49] LABS: Chloride* 105 mmol/L (96-114); Potassium* 4.1 mmol/L (3.6-5.1); Sodium* 137 mmol/L (135-149)
[2024-06-02 06:52] LABS: Anion Gap 7 mEq/L (7-15); Blood Urea Nitrogen* 22 mg/dL (7-30); Carbon Dioxide* 25 mmol/L (20-32); Est. Creatinine Clearance* 82.99; Estimated Glomerular Filt Rate 85 ml/min
[2024-06-02 06:53] LABS: Calcium* 8.7 mg/dL (8.4-10.6); Glucose* 158 mg/dL (60-115)
--- NOTE | 2024-06-02 07:57 | PC.NURSE ---
Shift note ([id number]): Patient pleasant, alert and oriented.?Ambulating independently in room. Dressing to left toe C,D&I. Denied pain. ?
[2024-06-02 08:27] VITALS: BP 137/84; PULSE 87; RESP 12; TEMP 36.8; O2SAT 99
[2024-06-02] MEDS: EMPAGLIFLOZIN 10 MG TABLET PO (08:43)
[2024-06-02] MEDS: lisinopriL 5 MG TABLET PO (08:43)
[2024-06-02] MEDS: SODIUM CHLORIDE 0.9 % (FLUSH) 10 ML SYRINGE 5 ML IVF (08:47)
--- NOTE | 2024-06-02 10:37 | P.DS_ITS ---
DS: Providers Provider Date Seen: 06/02/24 Date of admission: 05/29/24 22:11 Primary care physician: Tere Koenig MD Admitting Clinician: Stacey Pettit MD Consults: 05/30/24 06:00 Consult to Physician [CONS] Routine Comment: Consulting Provider: Derrick Mondragon Has provider been notified: No Attending Physician on discharge: Jing Cota MD DS: Diagnosis Discharge Diagnosis (1) Osteomyelitis: Status: Acute Problem details: -CT shows osteolytic destruction of the distal phalanx of the great toe consistent with osteomyelitis. On the coronal soft tissue windows there is a rim enhancing low-attenuation collection along the dorsal aspect of the distal phalanx of the left great toe consistent with a subperiosteal abscess. Diffuse skin thickening and subcutaneous edema of the left great toes consistent with cellulitis -afebrile, no leukocytosis, procalcitonin 0.11, CRP 4.3, wound culture pending -continue zosyn as preliminary wound culture is growing multiple Gram-negative rods (Pseudomonas, Citrobacter, Enterobacter cloacae). Pending complete Cx & sensitivity. -DC IV vancomycin -wound cares -consulted fundraising assistant, Dr. Mondragon, S/p partial open great toe amputation left foot 05/30/2024. -Wound is still open, podiatry will take him back for OR for closure. -h/o left 3rd toe amputation (2021) -PT and OT consultation -Packing with wet-to-dry dressing. -Plan for return to OR 06/01 late afternoon for revision and primary closure. -Per Podiatry: May DC home on if cultures returned sensitivities. -May need infectious disease consult. (2) Status post amputation of toe: Status: Acute Problem details: -findings and management as above (3) Cellulitis: Status: Acute Problem details: -findings and management as above (4) Abscess of toe of left foot: Status: Acute Problem details: -findings and management as above (5) Type 2 diabetes mellitus: Status: Acute Problem details: -with peripheral neuropathy -most recent A1c 6.7 -hold metformin, continue Jardiance. Continue ACEI/ARB -glucose checks ACHS -sliding scale insulin, low dose (6) Hypercholesterolemia: Status: Acute Problem details: -continue statin DS: Summary Hospital Course Hospital Course: A 64 yo M pt w/ PMHx of DM who presents w/ cellulitis and osteomyelitis of his Lt big toe. We started him on zosyn empirically. Wound culture grew multiple Gr am-negative rods (Citrobacter, Enterobacter cloacae, Klebsiella) sensitive to flouroquinilones. We consulted fundraising assistant, Dr. Mondragon, who performed partial open great toe amputation left foot on 05/30/2024 and return to OR on 06/01 for revision and primary closure. Pt DCed home on levoquin 750 mg PO x1 for 2 Wks & ASA 81 mg BID. F / up w PCP, podiatry in 1 wk & PT and OT as an outpt. Status at Discharge Functional status at discharge: independent ambulation Time Spent with Patient Time attestation: Total time spent providing and/or coordinating discharge services: 50 min Exam Narrative: Exam Narrative: GENERAL: Comfortable, no acute distress. HEAD AND NECK: Atraumatic, normocephalic CARDIOVASCULAR: RRR. Normal S1, S2. No murmurs. RESPIRATORY: Clear to auscultation B/L. Good air entry B/L. No wheezes or rhonchi. GASTROINTESTINAL: Not distended, not tender to palpation. NEUROLOGY: Alert, awake, oriented X 3. Normal speech. No focal weakness. MUSCULOSKELETAL: Left foot with clean dressing and bandage (Partial amputation great toe left foot. Complete amputation 3rd toe left foot). PSYCH: Normal mood, normal affect. Const: Vital Signs, click to edit/add: Vital Signs - 24 hr 06/01/24 11:00 06/01/24 15:00 06/01/24 15:00 Temperature 97.9 F 98.4 F Pulse Rate Pulse Rate [Pulse Oximeter] 63 80 80 Respiratory Rate 20 20 20 Blood Pressure Blood Pressure [Ri ght Arm] 156/94 H 134/98 H Pulse Oximetry 99 99 Oxygen Delivery Me thod Room Air Room Air 06/01/24 18:06 06/01/24 18:12 06/01/24 18:36 Temperature 97.7 F 97.7 F 97.7 F Pulse Rate 95 102 H 94 Pulse Rate [Pulse Oximeter] Respiratory Rate 20 18 20 Blood Pressure 131/90 H 121/82 140/95 H Blood Pressure [Ri ght Arm] Pulse Oximetry 99 98 100 Oxygen Delivery Me thod Room Air Room Air Room Air 06/01/24 18:51 06/01/24 19:05 06/01/24 19:30 Temperature 97.7 F 97.7 F Pulse Rate 96 96 Pulse Rate [Pulse Oximeter] 92 Respiratory Rate 20 20 20 Blood Pressure 138/92 H 131/87 Blood Pressure [Ri ght Arm] 137/88 Pulse Oximetry 98 98 97 Oxygen Delivery Me thod Room Air Room Air Room Air 06/01/24 19:35 06/01/24 20:05 06/01/24 21:05 Temperature 98.6 F Pulse Rate 92 85 86 Pulse Rate [Pulse Oximeter] Respiratory Rate 20 Blood Pressure 137/88 133/89 128/93 H Blood Pressure [Ri ght Arm] Pulse Oximetry 97 98 Oxygen Delivery Me thod Room Air Room Air Room Air 06/01/24 22:00 06/01/24 22:05 06/01/24 23:10 Temperature 98.3 F 98.3 F 98.4 F Pulse Rate 95 102 H Pulse Rate [Pulse Oximeter] 95 Respiratory Rate 18 20 Blood Pressure 133/81 135/97 H Blood Pressure [Ri ght Arm] 133/81 Pulse Oximetry 99 99 Oxygen Delivery Me thod Room Air Room Air Room Air 06/02/24 00:19 06/02/24 03:00 06/02/24 08:27 Temperature 99.1 F 98.9 F 98.2 F Pulse Rate 83 Pulse Rate [Pulse Oximeter] 83 87 Respiratory Rate 18 20 12 Blood Pressure 123/80 Blood Pressure [Ri ght Arm] 137/85 137/84 Pulse Oximetry 96 96 99 Oxygen Delivery Me thod Room Air Room Air Room Air 06/02/24 08:27 Temperature Pulse Rate Pulse Rate [Pulse Oximeter] 87 Respiratory Rate 12 Blood Pressure Blood Pressure [Ri ght Arm] Pulse Oximetry Oxygen Delivery Me thod DS: Data Data Completed and Pending Labs on day of discharge: Labs from last 24 hours 06/02/24 06:07 WBC 7.98 RBC 5.03 Hgb 13.9 Hct 41.8 MCV 83 MCH 28 MCHC 33 Plt Count 276 Sodium 137 Potassium 4.1 Chloride 105 Carbon Dioxide 25 Anion Gap 7 BUN 22 Creatinine 1.0 Estimated Creat Clear 82.99 Estimated GFR 85 Glucose 158 H Calcium 8.7 Discharge Plan Discharge Disposition: Home, Self-Care Date of Admission: 05/29/24 22:11 Attending Provider on Discharge: Jing Cota Consulting Providers: Derrick Mondragon Primary Care Provider: Tere Koenig Discharge Medications: New levofloxacin 750 mg tablet 750 mg PO DAILY Qty: 14 0RF Continued atorvastatin 40 mg tablet 40 mg PO HS metformin 1,000 mg tablet 1,000 mg PO BID lisinopril 5 mg tablet 5 mg PO DAILY Jardiance 10 mg tablet 10 mg PO DAILY Changed aspirin [Adult Aspirin Regimen] 81 mg tablet,delayed release (DR/EC) 81 mg PO BID 30 Days Qty: 60 0RF Discharge Orders: Discharge Order (Routine); Ordered 06/02/24 Ordered By: Jing Cota Patient Education: Levofloxacin (By mouth), Osteomyelitis (GEN) Additional Instructions: -patient needs to follow up with his primary care phys ician 1-2 weeks -patient need to follow up with Podiatry in a week -oral antibiotics for 2 weeks -aspirin 81 mg tablet twice a day. Activity Level: Light activity Discharge Diet: Diabetic Follow Up Appointments: Tere Koenig MD [Primary Care Provider] - 06/07/24 1:40 pm ([facility] for postop visit.) Forms: [employer] Info Instructions
[2024-06-02 11:12] VITALS: BP 132/78; PULSE 70; RESP 14; TEMP 36.7; O2SAT 98
--- NOTE | 2024-06-02 12:40 | PC.NURSE ---
Patient discharged home with . Declined need for adaptive devices at home. Has just been doing light activity on heal of toe infection. Patient has great upper body strength. PIV was taken out and catheter intact. Pt has f/u with Dr. Mondragon at the [facility] in [place] on 06/07 at 1pm, and will also f/u with PCP in [place] that same day at 240. All questions answered. Prescriptions sent into [facility]. Patient left via wheelchair escort.
--- NOTE | 2024-06-02 12:53 | PC.NURSE ---
Discharge: Patient pleasant and cooperative. Patient vitally stable, lungs clear, BS WNL, IV removed by another RN. Patient rates no pain. Patient independent with walker. Left foot wrapped up with bandages C/D/I. Blood sugar 134, tolerating regular diet and urinating. Discharge completed by YOKO Chamorro. Patient signed belongings sheet and left the floor at 1240 by wheelchair to home.
== END 2024-06-02 12:42 | disposition home or self-care (01) | DRG 314 ==
LOC: ED 16:52 → MEDSURG 21:14
PROVIDERS: Podiatrist; Student in an Organized Health Care Education/Training Program; Admitting Provider Physician Assistant; Emergency Provider Family Medicine; PCP Family Medicine; Visit Provider Family Medicine
PROC: 0Y6Q0Z3 Detachment at Left 1st Toe, Low, Open Approach (ICD-10-PCS; principal; 2024-05-30 11:30)
PROC: 0Y6Q0Z1 Detachment at Left 1st Toe, High, Open Approach (ICD-10-PCS; principal; 2024-06-01 16:30)
DX: E11.69 Type 2 diabetes mellitus with other specified complication (principal); M86.172 Other acute osteomyelitis, left ankle and foot; L02.612 Cutaneous abscess of left foot; L03.032 Cellulitis of left toe; E11.628 Type 2 diabetes mellitus with other skin complications; E11.621 Type 2 diabetes mellitus with foot ulcer; E11.42 Type 2 diabetes mellitus with diabetic polyneuropathy; L97.523 Non-pressure chronic ulcer of other part of left foot with necrosis of muscle; L97.526 Non-pressure chronic ulcer of other part of left foot with bone involvement without evidence of necrosis; B96.89 Other specified bacterial agents as the cause of diseases classified elsewhere; B96.5 Pseudomonas (aeruginosa) (mallei) (pseudomallei) as the cause of diseases classified elsewhere; B96.1 Klebsiella pneumoniae [K. pneumoniae] as the cause of diseases classified elsewhere; Z79.85 Long-term (current) use of injectable non-insulin antidiabetic drugs; Z79.84 Long term (current) use of oral hypoglycemic drugs; Z89.422 Acquired absence of other left toe(s); E78.00 Pure hypercholesterolemia, unspecified
CPT/HCPCS: 01480; 36415; 73701; 80048; 82962; 84145; 85025; 85027; 85651; 86140; 87070; 87186; 88305; 88311; 93005; 94761; 99140; 99284; 99285; A9270; J0665; J1650; J2543; J2704; J3010; J3372; Q9967